=== PATIENT | female | born 1965 | race Caucasian/White ===

== ENCOUNTER → 2022-06-25 | Outpatient (CLI) | payer BC, SELFPAY ==
[2022-06-25 15:30] LABS: Platelet Count 218 K/mm3 (150-450)
== END | disposition home or self-care (01) ==
LOC: MTLAB 11:42
PROVIDERS: Referring Provider Podiatrist; Visit Provider Podiatrist
DX: D69.3 Immune thrombocytopenic purpura (principal)
CPT/HCPCS: 36415; 85049

== ENCOUNTER 2023-05-29 20:17 | Inpatient (IN) | payer OTHER, SELFPAY ==
[2023-05-29 20:17] VITALS: BP 137/64; PULSE 82; RESP 18; TEMP 36.8; O2SAT 99; BMI 31.3
--- NOTE | 2023-05-29 20:48 | CT_ITS ---
We are attempting to reach an attending provider to discuss findings. An addendum with communication details will be sent when the communication is complete. STUDY: CT ABDOMEN AND PELVIS WITH CONTRAST REASON FOR EXAM: Female, 57 years old. abdominal pain RADIATION DOSAGE (If Supplied By Facility): CTDIvol = ( 15.08 ) mGy, DLP = ( 1039.17 ) mGycm TECHNIQUE: Transaxial images were obtained from the dome of the diaphragm to the symphysis pubis without oral contrast. IV 100mL Isovue-370 was administered. Sagittal and coronal images were reconstructed. Individualized dose optimization techniques were used for this CT. COMPARISON: None. FINDINGS: The visualized lung bases are unremarkable. The visualized portions of the heart are within normal limits. Normal liver. Cholelithiasis. Normal spleen. Normal pancreas. Normal bilateral adrenal glands. Normal right kidney. Normal left kidney. Normal visualized stomach. Normal small intestine. Normal colon. Appendix is enlarged measuring up to 12 mm in diameter. Multiple appendicoliths are noted. There is stranding of the mesenteric fat. There is moderate free fluid in the pelvis. No abscess is identified. Normal abdominal aorta. Normal inferior vena cava. Normal retroperitoneum. Normal urinary bladder. Leiomyomatous uterus. Normal abdominal wall. Normal osseous structures. CT/Abdomen/Pelvis W IV Cont ONLY IMPRESSION: Acute appendicitis. Moderate free fluid. No definite free air but perforation is difficult to exclude. Cholelithiasis. Leiomyomatous uterus. Electronically Signed: Jerome Tavarez MD at 22:36 EDT ,
--- NOTE | 2023-05-29 20:48 | ED.VIS.GI ---
HPI HPI - GI History of Present Illness Chief Complaint: Abd Pain Detail of Chief Complaint: Abdominal pain Informant: patient and spouse/S.O. Abdominal Pain/Flank Pain Current Severity: 04/03 Narrative Narrative: Patient presents to the ER with complaint of abdominal pain that started yesterday. Patient states that she was at work yesterday and started having vomiting and developed abdominal pain. Initially pain was up higher in the abdomen but now lower. She continues to vomit. She had some loose stool but no diarrhea. She denies fever. Pain worse with movement. Pain is continuous. She rates it an 8 out of 10. No history of kidney stones. She denies dysuria or urgency or frequency. [facility] Medical History (Updated 05/29/23 @ 22:[address] Daryl Chaudhary DO) Abdominal pain Allergy/AdvReac Type Severity Reaction Status Date / Time erythromycin base AdvReac Upset Verified 05/29/23 20:19 Stomach Social History Smoking Status: Never smoker ROS ROS ED Review of Systems ROS Unobtainable: other Constitutional Constitutional ED: Reports lethargy; Denies chills, fever(s), sweats or weight loss Eyes Eyes: Denies blurry vision, change in vision or diplopia ENT ENT ED: Denies rhinorrhea or sore throat Cardiovascular Cardiovascular: Denies chest pain, orthopnea or racing heartbeat Respiratory/Chest Respiratory/Chest: Denies cough, dyspnea, dyspnea on exertion, orthopnea or sputum Gastrointestinal Gastrointestinal: Reports abdominal pain, nausea and vomiting; Denies diarrhea Genitourinary Genitourinary ED: Denies dysuria, hematuria or urinary frequency Musculoskeletal Musculoskeletal: Denies arthralgias, back pain, myalgias or neck pain Integumentary Denies abscess, Abrasions or rash Neurologic Neurologic: Denies headache(s) or weakness Psychiatric Psychiatric: Denies anxiety, depression or suicidal thoughts Endocrine Endocrinology: Denies polydipsia, polyphagia or polyuria Hematologic/Lymphatic Hematologic/Lymphatic: Denies easy bleeding, easy bruising or lymphadenopathy Allergic/Immunologic Allergic/Immunologic ED: Denies mouth swelling, tongue swelling or urticaria EXAM Physical Exam Const Vital Signs: 05/29/23 20:17 Temperature 98.3 F Temperature Source Temporal Pulse Rate 82 Respiratory Rate 18 Blood Pressure 137/64 H Blood Pressure Mean 88 Pulse Ox 99 Oxygen Delivery Method Room Air Positive well nourished and well developed General Appearance ED: well developed and NAD HEENT Reports TM's clear and moist mucous membranes normocephalic and atraumatic; Negative for trauma or tenderness Tympanic Membrane ED: Yes TM's clear Eyes PERRL and EOMs intact bilaterally General Eye ED: Negative for pale conjunctiva or scleral icterus Neck no lymphadenopathy, supple and no JVD General: Negative for tenderness Chest Wall inspection of chest normal and palpation of chest normal Chest: Negative for tenderness Resp normal respiratory effort and clear to auscultation bilaterally Effort and Inspection: Negative for respiratory distress or pain with movement Auscultation: Negative for rhonchi, wheezes or diminished lung sounds Cardio regular rate, regular rhythm, S1 normal heart sound, S2 normal heart sound and no murmurs Peripheral Pulses: pulses 2+ throughout GI normal to inspection, nondistended, normoactive bowel sounds, soft to palpation, non-distended and no masses GI Narrative: Tenderness palpation diffusely over the right lower quadrant as well as the suprapubic region and left lower quadrant. There is guarding. There is no rebound, rigidity, or peritoneal signs. No mass palpated Back/Spine no CVA tenderness and no thoracic nor lumbar tenderness Extremity normal to inspection General Extremety ED: Negative for edema General Extremity: Negative for edema Neuro oriented x3, CN's II-XII intact bilaterally, no sensory deficits noted and gait normal Sensorium / Orientation: awake, alert, oriented to person, oriented to place and oriented to time Motor Exam: strength 5/5 throughout and strength abnormal Psych mental status grossly normal Skin no rashes or lesions noted and no wounds MDM MDM MDM Narrative Medical decision making narrative: Patient presents with abdominal pain since yesterday and vomiting. In the differential would be appendicitis versus diverticulitis versus kidney stone versus bowel obstruction or bowel perforation. IV line established. Patient was medicated with Dilaudid and Zofran. CBC with differential obtained showed an elevated white count of 21.5. Hemoglobin 14 and platelet count of 223. Chemistries unremarkable. Lactate was normal 1.8. LFTs unremarkable. Lipase was normal. CT scan of the abdomen pelvis obtained interpreted by radiology as acute appendicitis with concern for possible microperforation. Patient was started on Cipro and Flagyl IV. Case will be discussed with general surgeon on-call Dr. Feliciano to evaluate for surgical intervention Lab Data Attestation: I reviewed the patient's lab results. Labs: Laboratory Results - last 24 hr 05/29/23 05/29/23 20:20 21:55 WBC 21.5 H RBC 4.56 Hgb 14.2 Hct 41.8 MCV 91.7 MCH 31.1 MCHC 34.0 RDW Std Deviation 43.3 RDW Coeff of Sandip 12.9 Plt Count 223 MPV 10.7 Immature Gran % (Auto) 0.500 Neut % (Auto) 82.5 H Lymph % (Auto) 10.0 L [place] % (Auto) 6.7 Eos % (Auto) 0.1 Baso % (Auto) 0.2 Absolute Neuts (auto) 17.7 H Absolute Lymphs (auto) 2.14 Nucleated RBC % 0 Sodium 135 L Potassium 3.9 Chloride 102 Carbon Dioxide 27.0 Anion Gap 6 BUN 9 Creatinine 0.85 Estim Creat Clear Calc 72.72 Est GFR (MDRD) Af Amer 89 Est GFR (MDRD) Non-Af 73 BUN/Creatinine Ratio 10.6 Glucose 131 H Lactic Acid 1.8 Calcium 9.2 Total Bilirubin 1.20 H AST 29 ALT 32 Alkaline Phosphatase 70 Total Protein 7.3 Albumin 3.7 Globulin 3.6 Albumin/Globulin Ratio 1.0 Lipase 15 Radiography Diagnostic Testing: Clinical Impression(s) from Imaging Studies Abdomen/Pelvis CT 05/29/23 20:48 IMPRESSION: Acute appendicitis. Moderate free fluid. No definite free air but perforation is difficult to exclude. Cholelithiasis. Leiomyomatous uterus. Electronically Signed: Jerome Tavarez MD at 22:36 EDT Reading Location ID and State: [address] [place] [address] Tel , Service support , ADDENDUM: 05/29/23 2248 IMPRESSION: Acute appendicitis. Moderate free fluid. No definite free air but perforation is difficult to exclude. Cholelithiasis. Leiomyomatous uterus. N.B. : The above Results were Read Back by Jerome Tavarez MD to Daryl Chaudhary DO, and understanding confirmed on 05/29/2023 22:41:18 (ET). Electronically Signed: Jerome Tavarez MD at 22:36 EDT Reading Location ID and State: [address] [place] [address] Tel , Service support , Discharge Plan Triage Chief Complaint: Abd Pain ED Provider: Daryl Chaudhary Dx/Rx/DC Orders Clinical Impression: Leukocytosis, Abdominal pain, Acute appendicitis Primary Care Provider: Care Physician,No Primary Referrals: Care Physician,No Primary [Primary Care Provider] -
[2023-05-29 20:51] LABS: Absolute Lymphocyte Count 2.14 X10^3/uL (0.83-4.51); Absolute Neutrophil Count 17.7 X10^3/uL (2.0-7.7); Basophil# 0.04 X10^3/uL; Basophil% 0.2 % (0-1); Eosinophil# 0.02 X10^3/uL; Eosinophils% 0.1 % (0-5); Hematocrit 41.8 % (37-47); Hemoglobin 14.2 g/dL (12.0-15.0); Lymphocyte # 2.14 X10^3/ul (0.83-4.51); Mean Corpuscular Hgb 31.1 pg (27.0-32.0); Mean Corpuscular Volume 91.7 fL (81-99); Mean Platelet Vol. 10.7 fl (6.2-12.0); Monocyte# 1.44 X10^3/uL; Monocyte% 6.7 % (0-10); NRBC Flagged by Analyzer 0 % (0-5); Neutrophil % 82.5 % (47-70); Platelet Count 223 K/mm3 (150-450); RBC Distribution Width CV 12.9 % (11.6-14.6); RBC Distribution Width SD 43.3 fl (35.1-43.9); Red Blood Count 4.56 M/mm3 (4.2-5.4); White Blood Count 21.5 K/mm3 (4.4-11.0)
[2023-05-29] MEDS: HYDROmorphone 1 MG/ML Syringe IV ×2 (20:53→21:49)
[2023-05-29] MEDS: Ondansetron 4 MG/2 ML Vial IV (20:53)
[2023-05-29] MEDS: 0.9% Normal Saline (1000mL) 1,000 ML 125 ML IV (20:57)
[2023-05-29 21:02] LABS: AST(SGOT) 29 U/L (15-37); Alanine Aminotransfer ALT/SGPT 32 U/L (13-56); Albumin, Serum 3.7 g/dL (3.2-5.0); Alkaline Phosphatase 70 U/L (45-117); Anion Gap 6 (5-15); BUN 9 mg/dL (7-18); BUN/Creat Ratio 10.6 RATIO (10-20); Calcium,Total 9.2 mg/dL (8.5-10.1); Chloride 102 mmol/L (98-107); Creatinine, Serum 0.85 mg/dL (0.55-1.02); EST Glomerular Filtration Rate 73 mL/min (>60); Est Glom Filt Rate - Afr Amer 89 mL/min (>60); Estimated Creatinine Clearance 72.72 ml/min; Globulin 3.6 g/dL (2.2-4.2); Glucose 131 mg/dL (74-106); Potassium 3.9 mmol/L (3.5-5.1); Protein, Total 7.3 g/dL (6.4-8.2); Sodium Level 135 mmol/L (136-145)
[2023-05-29] MEDS: Ciprofloxacin 400 MG/200 ML BAG 200 MG IV (21:50)
[2023-05-29 22:21] LABS: Lipase 15 U/L (13-75)
[2023-05-29 22:33] LABS: Lactic Acid 1.8 mmol/L (0.4-1.9)
[2023-05-29] MEDS: metroNIDAZOLE 500 MG/100 ML BAG 100 MG IV (22:50)
--- NOTE | 2023-05-29 22:57 | ED.RN ---
2024 Pt was placed where the doors to the ed opens and instructed the man with the pt and the pt that they neede to move for fear that they would be hit by a cart coming through the door.the pt's male visitor was not pleased.attempt to explain,but moved her and not pleased.
--- NOTE | 2023-05-29 23:25 | PCM.HP.STD ---
HPI - General General Chief Complaint: Acute onset abdominal pain with associated nausea, vomiting, and diarrhea HPI Narrative DENISE BELLE, is a 57 F who presents to [facility] with her for approximately 36 hours of acute onset abdominal pain with associated nausea, vomiting, and diarrhea. She states she worked yesterday and had to leave early on account of the pain, nausea, vomiting. On arriving home, she states she laid around in her bed until earlier this evening when her prompted her to present for evaluation with worsening of her abdominal discomfort. She notes that there was some associated fevering as well. Patient's ED work-up is notable for CBC with leukocytosis of 21,000. CT imaging of the abdomen pelvis showed evidence of acute appendicitis with a number of appendicoliths and some free fluid. Radiology noted that a perforation could not be absolutely excluded. Patient has history of mild thrombocytopenia and states that her last check her platelet count was just over 100,000, however, here is over 200,000. She also reports use of estrogen for management of her menopausal symptoms. From a surgical standpoint, patient has undergone dilatation and curettage as well as tonsillectomy, remotely. [facility], [facility]1983 Medical History (Updated 05/29/23 @ 22:[address] Daryl Chaudhary, ) Abdominal pain Allergy/AdvReac Type Severity Reaction Status Date / Time erythromycin base AdvReac Upset Verified 05/29/23 20:19 Stomach Social History Smoking Status: Never smoker Vital Signs Vital Signs Vital Signs: 05/29/23 20:17 Temperature 98.3 F Temperature Source Temporal Pulse Rate 82 Respiratory Rate 18 Blood Pressure 137/64 H Blood Pressure Mean 88 Pulse Ox 99 Oxygen Delivery Method Room Air Weight Weight: 200 lb Body Mass Index (BMI) 31.3 Physical Exam Const alert and oriented x3 Constitutional Narrative: Patient appears in mild distress from abdominal discomfort General Appearance: cooperative Resp normal respiratory effort GI GI Narrative: No scars, nondistended, soft, exquisitely tender to palpation of the right lower quadrant. Voluntary guarding present. Negative Rovsing's. Positive obturator. Negative psoas sign. Results Lab / Micro Data 05/29/23 20:20 05/29/23 20:20 Labs: Laboratory Results - last 24 hr 05/29/23 20:20: WBC 21.5 H, RBC 4.56, Hgb 14.2, Hct 41.8, MCV 91.7, MCH 31.1, MCHC 34.0, RDW Std Deviation 43.3, RDW Coeff of Sandip 12.9, Plt Count 223, MPV 10.7, Immature Gran % (Auto) 0.500, Neut % (Auto) 82.5 H, Lymph % (Auto) 10.0 L, Davis % (Auto) 6.7, Eos % (Auto) 0.1, Baso % (Auto) 0.2, Absolute Neuts (auto) 17.7 H, Absolute Lymphs (auto) 2.14, Nucleated RBC % 0, Sodium 135 L, Potassium 3.9, Chloride 102, Carbon Dioxide 27.0, Anion Gap 6, BUN 9, Creatinine 0.85, Estim Creat Clear Calc 72.72, Est GFR (MDRD) Af Amer 89, Est GFR (MDRD) Non-Af 73, BUN/Creatinine Ratio 10.6, Glucose 131 H, Calcium 9.2, Total Bilirubin 1.20 H, AST 29, ALT 32, Alkaline Phosphatase 70, Total Protein 7.3, Albumin 3.7, Globulin 3.6, Albumin/Globulin Ratio 1.0, Lipase 15 05/29/23 21:55: Lactic Acid 1.8 Radiology Impression Abdomen/Pelvis CT 05/29/23 20:48 IMPRESSION: Acute appendicitis. Moderate free fluid. No definite free air but perforation is difficult to exclude. Cholelithiasis. Leiomyomatous uterus. Electronically Signed: Jerome Tavarez MD at 22:36 EDT Reading Location ID and State: [address] [place] [address] Tel , Service support , ADDENDUM: 05/29/23 1801 IMPRESSION: Acute appendicitis. Moderate free fluid. No definite free air but perforation is difficult to exclude. Cholelithiasis. Leiomyomatous uterus. N.B. : The above Results were Read Back by Jerome Tavarez MD to Daryl Chaudhary DO, and understanding confirmed on 05/29/2023 22:41:18 (ET). Electronically Signed: Jerome Tavarez MD at 22:36 EDT Reading Location ID and State: [facility] / [place] Tel , Service support , Assessment & Plan Assessment/Plan (1) Acute appendicitis: PLAN: This is a 57-year-old female who exhibits signs and symptoms of acute appendicitis. I agree with radiologic assessment that complicated appendicitis cannot be completely excluded given the degree of free fluid and periappendiceal inflammation seen on CT imaging. Patient has been administered ciprofloxacin and Flagyl for concern for diverticulitis by emergency medicine. We will plan to transition to IV Zosyn. I have discussed with patient the surgical management of her condition given the presence of appendicoliths, especially. We will plan to proceed with laparoscopic appendectomy first thing tomorrow morning. Both she and her expressed understanding of this discussion. They are also briefed that, depending on the intraoperative findings, she could require an extended inpatient stay for monitoring for possible abscess formation as well as development of an ileus if she is found to have evidence of a perforation. They expressed understanding of this caution as well. Patient reports a history of thrombocytopenia, but this does not appear to be a concern based on her CBC from earlier in her work-up that shows a platelet count of greater than 220,000. Remainder of plan as follows: ? N.p.o. for surgery ? IV fluid support ? IV Zosyn 3.375 every 8 hours ? Consent for laparoscopic appendectomy ? Surgery to be undertaken 0600 tomorrow morning ? PRNs for both pain and nausea ordered Charges/Coding Visit Charges Inpatient E&M: 93727 Init Hosp L2
[2023-05-30] VITALS (12 sets, daily range): BP systolic 108–137; BP diastolic 61–83; PULSE 77–97; RESP 16–20; TEMP 36.4–37.6; O2SAT 92–98; BMI 32.6
[2023-05-30] MEDS: HYDROmorphone 0.5 MG/0.5 ML SYRINGE IV ×5 (01:17→20:55)
[2023-05-30] MEDS: 0.9% Normal Saline (1000mL) 1,000 ML 125 ML IV ×2 (01:18→16:00)
[2023-05-30] MEDS: Piperacil/Tazobactam 3.375 GM in 0.9% Normal Saline (50mL MB+) 50 ML IV ×3 (02:12→21:00)
[2023-05-30] MEDS: 0.9% Saline Lock 10 ML Syringe IV (05:27)
[2023-05-30 05:51] LABS: Color, Urine Yellow (Yellow); Glucose, Dipstick 100 mg/dl (Normal); Leukocyte Esterase-Dipstick 25 /ul (Negative); Mucous, Urine 0 SEEN /hpf (<or=2+); Nitrite-Dipstick Positive (Negative); Occult Blood-Urine 150 /ul (Negative); Protein-Dipstick 30 mg/dl (Negative); Red Blood Cells-Urine 0 SEEN /hpf (0-5); Urine Clarity Clear (Clear); Urine Urobilinogen 4 mg/dl (Normal)
[2023-05-30 05:53] LABS: Basophil# 0.04 X10^3/uL; Basophil% 0.2 % (0-1); Hemoglobin 14.1 g/dL (12.0-15.0); Lymphocyte % 4.7 % (19-41); Mean Corp Hgb Conc 34.4 g/dL (32-36); Mean Corpuscular Hgb 31.9 pg (27.0-32.0); Mean Corpuscular Volume 92.8 fL (81-99); Mean Platelet Vol. 10.3 fl (6.2-12.0); Monocyte# 1.07 X10^3/uL; NRBC Flagged by Analyzer 0 % (0-5); Neutrophil # 18.99 X10^3/uL (2.7-7.7); Neutrophil % 89.5 % (47-70); Platelet Count 199 K/mm3 (150-450); RBC Distribution Width CV 13.2 % (11.6-14.6); RBC Distribution Width SD 45.1 fl (35.1-43.9); Red Blood Count 4.42 M/mm3 (4.2-5.4); White Blood Count 21.2 K/mm3 (4.4-11.0)
[2023-05-30 05:58] LABS: Ketone-Dipstick 150 mg/dl (Negative); Urine Bilirubin Dipstick 1 mg/dL (Negative)
[2023-05-30 06:03] LABS: Bacteria 1+ /hpf (None Seen); Squamous Epithelial Cells - UA 0-5 SEEN /hpf (5-10); White Blood Cells 0-5 SEEN /hpf (0-5)
[2023-05-30 06:23] LABS: Anion Gap 6 (5-15); BUN 11 mg/dL (7-18); BUN/Creat Ratio 12.1 RATIO (10-20); Calcium,Total 8.6 mg/dL (8.5-10.1); Chloride 105 mmol/L (98-107); Creatinine, Serum 0.91 mg/dL (0.55-1.02); EST Glomerular Filtration Rate 68 mL/min (>60); Est Glom Filt Rate - Afr Amer 83 mL/min (>60); Estimated Creatinine Clearance 67.93 ml/min; Glucose 166 mg/dL (74-106); Potassium 3.6 mmol/L (3.5-5.1); Sodium Level 136 mmol/L (136-145)
--- NOTE | 2023-05-30 07:54 | PCM.OPRPT ---
Report of Operation Date of Procedure: 05/30/23 Pre-Operative Diagnosis: Acute appendicitis Post-Operative Diagnosis: Acute complicated appendicitis Surgery/Procedure Performed:: Laparoscopic appendectomy with drain placement Description of Surgical Findings:: ? Moderately inflamed bowel adherent to the anterior abdominal wall with inflammatory exudate coating the majority of the small bowel ? Purulence within the pelvis and small flecks of fecal matter ? Severely inflamed appendix with a relatively preserved appendiceal base Surgeon: Richmond Feliciano chimney builder brick: Alphonse Acosta Type of Anesthesia: General/Supplemental Anesthesiologist: Abram Resendiz Specimen's removed: appendix Drains: 15F round dusty Estimated Blood Loss (mL): 10 Description of Procedure: After appropriate identification in the preoperative holding area, the patient was brought to the operating room and placed supine on the operating room table. Antibiotics had been preoperatively administered. Patient was then induced with general endotracheal anesthetic. The abdomen was prepped and draped in usual sterile fashion. Formal timeout was conducted to confirm both the patient and the procedure. A supraumbilical incision was made and carried down to the level of the fascia which was sharply opened. After opening the peritoneum in like fashion a finger sweep was made to confirm position, and a balloon trocar was placed and pneumoperitoneum was established to 15 mmHg. Patient was positioned in Trendelenburg with the left side down. 2 additional 5 mm trocars were placed in the left lower quadrant and suprapubic positions under laparoscopic visualization. The peritoneum was inspected and there are no signs of inadvertent injury from this Collier entry, however, there was plastering of the small bowel to the anterior abdominal wall in the suprapubic position that required blunt mobilization before ports could even be placed and abundant purulence within the pelvis. Patient was also noted to have a large fibroid uterus within the pelvis. The appendix was visualized with severe inflammation. Using blunt laparoscopic dissection the appendix was from the adjacent ileum and placed on traction. Then using further blunt dissection a window was made in the mesoappendix adjacent to the appendiceal base. The mesoappendix was divided with application of a laparoscopic harmonic. Then the base of the appendix was sealed and amputated with the use of an Endo RADHA stapler. The remainder of the mesoappendix was taken with additional application of the harmonic scalpel and the appendix was placed in an Endo Catch bag. The staple line was inspected for hemostasis. After hemostasis was confirmed the pelvis was copiously irrigated with 2 L of warmed lactated Ringer's and this effluent was suctioned free of the peritoneum. A 15 Palauan round Dusty drain was fed in through the suprapubic port and brought out through the left lower quadrant. The drain tip was positioned adjacent our surgical site and continued down into the pelvis and a retrouterine my. It was secured at the skin with a 2-0 nylon suture. Then the appendix was removed from the umbilical port site and pneumoperitoneum was evacuated. The supraumbilical port site fascia was closed with #1 Vicryl in a [id number] fashion. The port sites were infiltrated with 30 mL local anesthetic. The skin of each port site was closed with 4-0 Monocryl in a subcuticular fashion. Steri-Strips and OpSite dressings were applied. Patient tolerated procedure well without any apparent complications. They were awoken from general anesthetic without issue and transferred to post anesthesia care unit for ongoing recovery. Grafts/Implants Used: None Complications None Admit VTE Documentation VTE Mechan Device Prophylaxis: SCD's Procedures Digestive 40xxx-49xxx: 72702 Laparoscopy appendectomy
--- NOTE | 2023-05-30 08:00 | APP_PTH ---
PATIENT: DENISE BELLE LOC: MS3 U#:[id number] AGE/SX: 57/F ROOM: [facility] RE05/30/[address]: Dr. Richmond Feliciano MD : 1965 BED: 1 DIS: 06/03/2023 SPEC #: [id number] RECD: 05/30/23 08:31 STATUS: OUMAR RERoxanne #: [id number] ELIZABETH: 05/30/23 08:[address]: Richmond Feliciano DEPT: SURGICAL PATHOLOGY RECD BY: Deedee Allred ENTERED: 05/30/23 10:12 SP TYPE: APPENDIX OTHR DR: No Primary Care Phys Tissues: Appendix, NOS Procedures: Surgery Specimen Level III HEADER OPERATION: Laparoscopic appendectomy PRE-OP DIAGNOSIS: Acute appendicitis TISSUE SUBMITTED: Appendix MICROSCOPIC DIAGNOSIS Appendix, appendectomy: Acute necrotizing appendicitis. Acute serositis. AM:wilda 06/02/2023 MICROSCOPIC DESCRIPTION Slides are reviewed. GROSS DESCRIPTION Received in fixative is one container labeled with the patient's name and designated appendix. The specimen consists of an appendix measuring 9.0 cm in length and up to 1.0 cm in diameter. The attached periappendiceal adipose tissue measures up to 2.0 cm in width. The serosal surface is covered with roberts, purulent exudate. A focal area suspicious for rupture is noted. The lumen contains hemorrhagic material. No fecalith is identified. Solar Electric Installer sections are submitted in one cassette. / SJ:wilda 05/30/2023 TC:2 CPT: 60115
[2023-05-30] MEDS: Bupivacaine Mpf 0.5% 30 ML VIAL (12:32)
--- NOTE | 2023-05-30 15:00 | CASEMGMT ---
KATIUSKA GARLAND Assessment: Face to Face with pt for initial transition planning/care coordination assessment. Patient laying in bed resting; wakes easily to sound of my voice; is also at the bedside. KATIUSKA GARLAND introduced self and role at [facility], pt voices understanding and consents to assessment. Pt is A&O x4 and answers all questions appropriately at this time. Care providers, pharmacy, and demographics verified/updated. During assessment (at two different times) patient lets out a cry, and puts her hands near where her surgery took place. I informed her that I would let her nurse know about this. KATIUSKA GARLAND informed patient's nurse, Gee, of this information and that patient seems to be displaying that she has pain. Admitting Dx: Acute appendicitis PCP: None. KATIUSKA GARLAND provided patient with list of PCPs for her to review. Specialists: Ethan ([facility] - OBGYN - pt. stats no longer takes her insurance) [facility] Insurance: MMO Exchange Out Prescription Benefit: Patient states she is unsure as she has not had any prescriptions recently LNOK: Karina Edwards () Living Will/HCPOA: No and No. Patient's states she has both of these documents written up but just needs to get them notarized. Living Arrangements: Pt lives at home with her in a 1 story, FFSU with 5 steps w/railing to enter. Pt. states prior to this admission she ambulated these stairs without difficulty. Independent in all ADLs and IADLs (states her does most of cooking and cleaning since he is retired, but she can do these if needed). Transportation: Pt drives self. can also drive if needed. DME: Denies any current DME. Denies need for any future DME. HHC/SNF: Denies any previous HHC or SNF Pt does not voice any concerns with going home at time of dc. Pt states no further concerns/needs. CM to follow. Advised pt to ask CM if any further question/concerns/needs arise, voices understanding. Pt Goal: Home with support of who is a retired manager sourcing Plan: Patient to discharge home with family support and follow-up plans in place. Shameka LI, RN, CM
[2023-05-31] VITALS (7 sets, daily range): BP systolic 130–152; BP diastolic 73–90; PULSE 76–86; RESP 16–18; TEMP 36.6–37.3; O2SAT 94–96
[2023-05-31] MEDS: 0.9% Normal Saline (1000mL) 1,000 ML 125 ML IV ×2 (00:19→08:21)
[2023-05-31] MEDS: HYDROmorphone 0.5 MG/0.5 ML SYRINGE IV ×5 (01:48→23:56)
[2023-05-31] MEDS: Piperacil/Tazobactam 3.375 GM in 0.9% Normal Saline (50mL MB+) 50 ML IV ×3 (05:39→23:41)
[2023-05-31 07:56] LABS: Absolute Lymphocyte Count 1.43 X10^3/uL (0.83-4.51); Absolute Neutrophil Count 16.4 X10^3/uL (2.0-7.7); Basophil# 0.05 X10^3/uL; Basophil% 0.3 % (0-1); Eosinophil# 0.01 X10^3/uL; Eosinophils% 0.1 % (0-5); Hematocrit 37.9 % (37-47); Hemoglobin 12.3 g/dL (12.0-15.0); Lymphocyte # 1.43 X10^3/ul (0.83-4.51); Lymphocyte % 7.5 % (19-41); Mean Corp Hgb Conc 32.5 g/dL (32-36); Mean Corpuscular Volume 95.5 fL (81-99); Monocyte# 1.01 X10^3/uL; Monocyte% 5.3 % (0-10); NRBC Flagged by Analyzer 0 % (0-5); Neutrophil # 16.37 X10^3/uL (2.7-7.7); Neutrophil % 85.8 % (47-70); Platelet Count 213 K/mm3 (150-450); RBC Distribution Width CV 13.3 % (11.6-14.6); RBC Distribution Width SD 47.5 fl (35.1-43.9); Red Blood Count 3.97 M/mm3 (4.2-5.4); White Blood Count 19.1 K/mm3 (4.4-11.0)
[2023-05-31 08:26] LABS: Anion Gap 4 (5-15); BUN 10 mg/dL (7-18); BUN/Creat Ratio 14.1 RATIO (10-20); Calcium,Total 8.3 mg/dL (8.5-10.1); Chloride 107 mmol/L (98-107); Creatinine, Serum 0.71 mg/dL (0.55-1.02); EST Glomerular Filtration Rate 91 mL/min (>60); Est Glom Filt Rate - Afr Amer 110 mL/min (>60); Estimated Creatinine Clearance 87.06 ml/min; Glucose 115 mg/dL (74-106); Magnesium 2.4 mg/dL (1.6-2.6); Phosphorus 1.4 mg/dL (2.5-4.9); Potassium 3.7 mmol/L (3.5-5.1); Sodium Level 137 mmol/L (136-145)
--- NOTE | 2023-05-31 08:47 | PCM.PN.SRG ---
Subjective Subjective The patient does not report any flatus. Her pain is controlled. Objective Data Objective Data Vital Signs: Vital Signs Temp Pulse Resp BP Pulse Ox O2 Del Method O2 Flow Rate 99.1 F 82 18 138/79 H 94 Room Air 2 05/31/23 08:29 05/31/23 08:29 05/31/23 08:29 05/31/23 08:29 05/31/23 08:29 05/31/23 08:29 05/30/23 11:47 Oxygen Flow Rate (L/min) 2 Oxygen Delivery Method Room Air Weight: 208 lb 5.389 oz Body Mass Index (BMI) 32.6 Intake & Output: Intake and Output for Last 24 Hours 05/29/23 05/30/23 05/31/23 23:59 23:59 23:59 Intake Total 300 / 300 2600.00 / 3600.00 2049 / 2049 Output Total 955 / 955 280 / 280 Balance 300 / 300 1645.00 / 2645.00 1770 / 1770 Lab / Micro Data 05/31/23 06:30 05/31/23 06:30 Labs: Laboratory Results - last 24 hr 05/31/23 06:30: WBC 19.1 H, RBC 3.97 L, Hgb 12.3, Hct 37.9, MCV 95.5, MCH 31.0, MCHC 32.5 D, RDW Std Deviation 47.5 H, RDW Coeff of Sandip 13.3, Plt Count 213, MPV 11.0, Immature Gran % (Auto) 1.000 H, Neut % (Auto) 85.8 H, Lymph % (Auto) 7.5 L, [place] % (Auto) 5.3, Eos % (Auto) 0.1, Baso % (Auto) 0.3, Absolute Neuts (auto) 16.4 H, Absolute Lymphs (auto) 1.43, Nucleated RBC % 0, Sodium 137, Potassium 3.7, Chloride 107, Carbon Dioxide 26.0, Anion Gap 4 L, BUN 10, Creatinine 0.71, Estim Creat Clear Calc 87.06, Est GFR (MDRD) Af Amer 110, Est GFR (MDRD) Non-Af 91, BUN/Creatinine Ratio 14.1, Glucose 115 H, Calcium 8.3 L, Phosphorus 1.4 L, Magnesium 2.4 Micro: Microbiology 05/30/23 07:22 Aspirate - Other Gram Stain - Final Physical Exam Const oriented x3 and no apparent distress Resp normal respiratory effort GI soft to palpation Inspection: abdominal distention Auscultation: hypoactive bowel sounds Palpation: tender Assessment & Plan Assessment/Plan (1) Acute appendicitis: QUALIFIERS: Acute appendicitis type: with localized peritonitis Appendicitis gangrene presence: without gangrene Appendicitis perforation presence: with perforation Appendicitis abscess presence: unspecified whether abscess present Qualified Code(s): K35.32 - Acute appendicitis with perforation, localized peritonitis, and gangrene, without abscess (2) Hypophosphatemia: PLAN: Plan Patient is not passing any flatus yet. I encouraged ambulation. I will start Lovenox tomorrow. White count is decreasing and I will continue IV antibiotics. SARA is serous. Await bowel function. Alphonse Acosta MD Pager: [facility] [address] [place] [address], [address] [place] [address] Office:
[2023-05-31] MEDS: Ondansetron 4 MG/2 ML Vial IV (10:24)
[2023-05-31] MEDS: Potassium Phosphate 30 MM in 0.9% Normal Saline (250mL Bag) 250 ML 42 MM IV (12:29)
[2023-05-31] MEDS: 0.9% Normal Saline (1000mL) 1,000 ML 80 ML IV (23:40)
[2023-06-01 03:34] VITALS: BP 151/86; PULSE 73; RESP 18; TEMP 36.8; O2SAT 94
[2023-06-01] MEDS: Piperacil/Tazobactam 3.375 GM in 0.9% Normal Saline (50mL MB+) 50 ML IV ×3 (05:51→20:12)
[2023-06-01 06:06] LABS: Basophil# 0.04 X10^3/uL; Basophil% 0.3 % (0-1); Eosinophil# 0.07 X10^3/uL; Eosinophils% 0.5 % (0-5); Hematocrit 36.5 % (37-47); Hemoglobin 12.1 g/dL (12.0-15.0); Lymphocyte % 8.4 % (19-41); Mean Corp Hgb Conc 33.2 g/dL (32-36); Mean Corpuscular Hgb 31.1 pg (27.0-32.0); Mean Corpuscular Volume 93.8 fL (81-99); Mean Platelet Vol. 10.5 fl (6.2-12.0); Monocyte# 0.77 X10^3/uL; Monocyte% 5.9 % (0-10); NRBC Flagged by Analyzer 0 % (0-5); Neutrophil # 11.02 X10^3/uL (2.7-7.7); Neutrophil % 84.4 % (47-70); Platelet Count 235 K/mm3 (150-450); RBC Distribution Width CV 13.4 % (11.6-14.6); RBC Distribution Width SD 45.8 fl (35.1-43.9); Red Blood Count 3.89 M/mm3 (4.2-5.4); White Blood Count 13.1 K/mm3 (4.4-11.0)
[2023-06-01 07:29] LABS: Anion Gap 5 (5-15); BUN 10 mg/dL (7-18); BUN/Creat Ratio 18.1 RATIO (10-20); Chloride 108 mmol/L (98-107); Creatinine, Serum 0.55 mg/dL (0.55-1.02); EST Glomerular Filtration Rate 122 mL/min (>60); Est Glom Filt Rate - Afr Amer 147 mL/min (>60); Estimated Creatinine Clearance 112.39 ml/min; Glucose 120 mg/dL (74-106); Magnesium 2.5 mg/dL (1.6-2.6); Potassium 3.5 mmol/L (3.5-5.1); Sodium Level 139 mmol/L (136-145)
[2023-06-01 08:16] LABS: Phosphorus 1.6 mg/dL (2.5-4.9)
--- NOTE | 2023-06-01 08:22 | PCM.PN.SRG ---
Subjective Subjective Patient is not having any bowel function yet Objective Data Objective Data Vital Signs: Vital Signs Temp Pulse Resp BP Pulse Ox O2 Del Method O2 Flow Rate 98.3 F 73 18 151/86 H 94 Room Air 2 06/01/23 03:34 06/01/23 03:34 06/01/23 03:34 06/01/23 03:34 06/01/23 03:34 06/01/23 03:34 05/30/23 11:47 Oxygen Flow Rate (L/min) 2 Oxygen Delivery Method Room Air Weight: 208 lb 5.389 oz Body Mass Index (BMI) 32.6 Intake & Output: Intake and Output for Last 24 Hours 05/30/23 05/31/23 06/01/23 23:59 23:59 23:59 Intake Total 2600.00 / 3600.00 4250 / 4250 310 / 310 Output Total 955 / 955 395 / 395 640 / 640 Balance 1645.00 / 2645.00 3855 / 3855 -330 / -330 Lab / Micro Data 06/01/23 04:50 06/01/23 04:50 Labs: Laboratory Results - last 24 hr 05/31/23 06:30: Sodium 137, Potassium 3.7, Chloride 107, Carbon Dioxide 26.0, Anion Gap 4 L, BUN 10, Creatinine 0.71, Estim Creat Clear Calc 87.06, Est GFR (MDRD) Af Amer 110, Est GFR (MDRD) Non-Af 91, BUN/Creatinine Ratio 14.1, Glucose 115 H, Calcium 8.3 L, Phosphorus 1.4 L, Magnesium 2.4 06/01/23 04:50: WBC 13.1 H, RBC 3.89 L, Hgb 12.1, Hct 36.5 L, MCV 93.8, MCH 31.1, MCHC 33.2, RDW Std Deviation 45.8 H, RDW Coeff of Sandip 13.4, Plt Count 235, MPV 10.5, Immature Gran % (Auto) 0.500, Neut % (Auto) 84.4 H, Lymph % (Auto) 8.4 L, [place] % (Auto) 5.9, Eos % (Auto) 0.5, Baso % (Auto) 0.3, Absolute Neuts (auto) 11.0 H, Absolute Lymphs (auto) 1.10, Nucleated RBC % 0, Sodium 139, Potassium 3.5, Chloride 108 H, Carbon Dioxide 26.0, Anion Gap 5, BUN 10, Creatinine 0.55, Estim Creat Clear Calc 112.39, Est GFR (MDRD) Af Amer 147, Est GFR (MDRD) Non-Af 122, BUN/Creatinine Ratio 18.1, Glucose 120 H, Calcium 8.0 L, Phosphorus 1.6 L, Magnesium 2.5 Micro: Microbiology 05/30/23 07:22 Aspirate - Other Gram Stain - Final 05/30/23 07:22 Aspirate - Other Wound Culture - Preliminary GNR lactose desktop support specialist GNR lactose desktop support specialist#2 Alpha hemolytic organism Physical Exam Const oriented x3 Resp normal respiratory effort GI soft to palpation Inspection: abdominal distention Assessment & Plan Assessment/Plan (1) Acute appendicitis: QUALIFIERS: Acute appendicitis type: with localized peritonitis Appendicitis gangrene presence: without gangrene Appendicitis perforation presence: with perforation Appendicitis abscess presence: unspecified whether abscess present Qualified Code(s): K35.32 - Acute appendicitis with perforation, localized peritonitis, and gangrene, without abscess PLAN: Patient is using doing well. She is not having any bowel function yet. Continue n.p.o. and IV fluids with sips and chips continue to encourage ambulation. Continue SARA drain which is serous. Alphonse Acosta MD Pager: [facility] [address] [place] [address], [address] [place] [phone] Office:
[2023-06-01 09:30] VITALS: BP 144/86; PULSE 80; RESP 18; TEMP 37.3; O2SAT 96
--- NOTE | 2023-06-01 09:42 | NURSING ---
K PHOS IV NOT HERE FOR PT ADMINISTRATION
[2023-06-01] MEDS: Potassium Phosphate 30 MM in 0.9% Normal Saline (250mL Bag) 250 ML 42 MM IV (10:38)
[2023-06-01] MEDS: 0.9% Normal Saline (1000mL) 1,000 ML 80 ML IV ×2 (10:58→20:16)
[2023-06-01] MEDS: Acetaminophen 325 MG Tablet 650 MG PO ×2 (13:02→18:49)
[2023-06-01] MEDS: Ketorolac 15 MG/ML Vial IV (13:03)
[2023-06-01] MEDS: Enoxaparin 40 MG/0.4 ML Syringe SC (13:04)
[2023-06-01 14:26] VITALS: BP 131/71; PULSE 85; RESP 18; TEMP 37.1; O2SAT 99
[2023-06-01 19:59] VITALS: BP 149/76; PULSE 78; RESP 16; TEMP 36.7; O2SAT 95
[2023-06-01] MEDS: HYDROmorphone 0.5 MG/0.5 ML SYRINGE IV (20:06)
[2023-06-01] MEDS: 0.9% Saline Lock 10 ML Syringe IV (20:08)
[2023-06-02 03:01] VITALS: BP 163/84; PULSE 72; RESP 16; TEMP 36.8; O2SAT 95
[2023-06-02] MEDS: Acetaminophen 325 MG Tablet 650 MG PO ×2 (03:06→21:25)
[2023-06-02] MEDS: Ketorolac 15 MG/ML Vial IV (03:06)
[2023-06-02] MEDS: Piperacil/Tazobactam 3.375 GM in 0.9% Normal Saline (50mL MB+) 50 ML IV ×3 (05:23→21:11)
[2023-06-02 06:21] LABS: Absolute Lymphocyte Count 1.18 X10^3/uL (0.83-4.51); Absolute Neutrophil Count 6.9 X10^3/uL (2.0-7.7); Basophil# 0.05 X10^3/uL; Basophil% 0.5 % (0-1); Eosinophils% 3.2 % (0-5); Hematocrit 34.6 % (37-47); Hemoglobin 11.4 g/dL (12.0-15.0); Lymphocyte # 1.18 X10^3/ul (0.83-4.51); Lymphocyte % 12.7 % (19-41); Mean Corp Hgb Conc 32.9 g/dL (32-36); Mean Corpuscular Hgb 30.9 pg (27.0-32.0); Mean Corpuscular Volume 93.8 fL (81-99); Mean Platelet Vol. 10.1 fl (6.2-12.0); Monocyte% 8.6 % (0-10); NRBC Flagged by Analyzer 0 % (0-5); Neutrophil # 6.91 X10^3/uL (2.7-7.7); Neutrophil % 74.4 % (47-70); Platelet Count 242 K/mm3 (150-450); RBC Distribution Width CV 13.4 % (11.6-14.6); RBC Distribution Width SD 46.1 fl (35.1-43.9); Red Blood Count 3.69 M/mm3 (4.2-5.4); White Blood Count 9.3 K/mm3 (4.4-11.0)
[2023-06-02 06:44] LABS: Anion Gap 7 (5-15); BUN 10 mg/dL (7-18); BUN/Creat Ratio 18.2 RATIO (10-20); Calcium,Total 7.8 mg/dL (8.5-10.1); Chloride 109 mmol/L (98-107); Creatinine, Serum 0.55 mg/dL (0.55-1.02); EST Glomerular Filtration Rate 122 mL/min (>60); Est Glom Filt Rate - Afr Amer 148 mL/min (>60); Estimated Creatinine Clearance 112.39 ml/min; Glucose 105 mg/dL (74-106); Potassium 3.4 mmol/L (3.5-5.1); Sodium Level 140 mmol/L (136-145)
[2023-06-02] MEDS: 0.9% Normal Saline (1000mL) 1,000 ML 80 ML IV ×2 (06:49→19:07)
[2023-06-02 08:45] VITALS: BP 142/77; PULSE 63; RESP 18; TEMP 37.3; O2SAT 97
[2023-06-02] MEDS: Enoxaparin 40 MG/0.4 ML Syringe SC (08:53)
--- NOTE | 2023-06-02 09:18 | PN.SURG_ITS ---
Subjective Subjective Patient evaluated sitting comfortably on the side of the bed. She denies nausea, vomiting, fever. She notes feeling much improved. She denies abdominal pain currently. She is feeling hungry. Patient has been passing flatus starting this morning. She has not had a bowel movement at this time. Objective Data Objective Data Vital Signs: Vital Signs Temp Pulse Resp BP Pulse Ox O2 Del Method O2 Flow Rate 99.1 F 63 18 142/77 H 97 Room Air 2 06/02/23 08:45 06/02/23 08:45 06/02/23 08:45 06/02/23 08:45 06/02/23 08:45 06/02/23 08:45 05/30/23 11:47 Oxygen Flow Rate (L/min) 2 Oxygen Delivery Method Room Air Weight: 208 lb 5.389 oz Body Mass Index (BMI) 32.6 Intake & Output: Intake and Output for Last 24 Hours 05/31/23 06/01/23 06/02/23 23:59 23:59 23:59 Intake Total 4250 / 4250 3034.04 / 3134.04 1092.96 / 1092.96 Output Total 395 / 395 1200 / 1200 990 / 990 Balance 3855 / 3855 1834.04 / 1934.04 102.96 / 102.96 Lab / Micro Data 06/02/23 05:30 06/02/23 05:30 Labs: Laboratory Results - last 24 hr 06/02/23 05:30: WBC 9.3, RBC 3.69 L, Hgb 11.4 L, Hct 34.6 L, MCV 93.8, MCH 30.9, MCHC 32.9, RDW Std Deviation 46.1 H, RDW Coeff of Sandip 13.4, Plt Count 242, MPV 10.1, Immature Gran % (Auto) 0.600, Neut % (Auto) 74.4 H, Lymph % (Auto) 12.7 L, [place] % (Auto) 8.6, Eos % (Auto) 3.2, Baso % (Auto) 0.5, Absolute Neuts (auto) 6.9, Absolute Lymphs (auto) 1.18, Nucleated RBC % 0, Sodium 140, Potassium 3.4 L , Chloride 109 H, Carbon Dioxide 24.0, Anion Gap 7, BUN 10, Creatinine 0.55, Estim Creat Clear Calc 112.39, Est GFR (MDRD) Af Amer 148, Est GFR (MDRD) Non-Af 122, BUN/Creatinine Ratio 18.2, Glucose 105, Calcium 7.8 L Micro: Microbiology 05/30/23 07:22 Aspirate - Other Gram Stain - Final 05/30/23 07:22 Aspirate - Other Wound Culture - Preliminary Escherichia coli Klebsiella pneumoniae sp pneum Alpha hemolytic organism 05/30/23 07:22 Aspirate - Other Anaerobic Culture - Preliminary Checking for anaerobes, further studies to follow. Physical Exam GI GI Narrative: Abdomen- soft, nontender. SARA drain intact. No erythema at the incision sites. SARA drain intact and draining serosanguineous drainage. Assessment & Plan Assessment/Plan (1) Acute appendicitis: QUALIFIERS: Acute appendicitis type: with localized peritonitis Appendicitis gangrene presence: without gangrene Appendicitis perforation presence: with perforation Appendicitis abscess presence: unspecified whether abscess present Qualified Code(s): K35.32 - Acute appendicitis with perforation, localized peritonitis, and gangrene, without abscess PLAN: I am following this patient in conjunction with Dr. Acosta in Dr. Feliciano's absence. WBC has returned to normal Awaiting phos lab work Plan to replace potassium once phos has returned Increase to clear liquid diet has had 290 cc out since 0300 AM this morning. Continue to leave and monitor Obtain lab work tomorrow morning Possible discharge tomorrow We will continue to monitor this patient Charges/Coding Visit Charges Inpatient E&M: 85859 Subs Hosp L1 (no charge; post-op)
[2023-06-02 10:01] LABS: Phosphorus 2.4 mg/dL (2.5-4.9)
[2023-06-02] MEDS: Potassium Phosphate 15 MM in 0.9% Normal Saline (250mL Bag) 250 ML 125 MM IV (11:24)
--- NOTE | 2023-06-02 14:40 | CHAPLAIN ---
Type of Pastoral Visit ___ Initial Visit _x__ Follow-up Visit ___ On-call Visit ___ General Patient Visit ___ Spiritual Assessment ___ Family Conference ___ Bereavement ___ Rapid Response ___ Code Blue ___ Other (describe below) Pastoral Care Referral From _x__ Patient ___ Family ___ Nurse ___ Physician ___ Gas Or Petroleum Operator ___ Conveyor Operator ___ Other (describe below) Sacrament/Intervention _x__ Active listening ___ Anointing ___ Rastafari ___ Bereavement ___ Communion ___ Janie exploration ___ ___ Life review _x__ Prayer ___ Reconciliation ___ Sacrament of Sick ___ Supportive presence ___ Wedding ___ Other (describe below) Pastoral Comments patient states she is recovering well after surgery and finds many blessings in this situation; pt spouse is with her; pt and spouse speak of their sabianist and janie which helps them in this; no other needs are identified
[2023-06-02 16:00] VITALS: BP 146/82; PULSE 68; RESP 18; TEMP 36.9; O2SAT 96
[2023-06-02 21:13] VITALS: BP 130/71; PULSE 71; RESP 16; TEMP 36.9; O2SAT 94
[2023-06-03 03:15] VITALS: BP 147/78; PULSE 62; RESP 16; TEMP 36.6; O2SAT 94
[2023-06-03] MEDS: Piperacil/Tazobactam 3.375 GM in 0.9% Normal Saline (50mL MB+) 50 ML IV (05:47)
[2023-06-03] MEDS: 0.9% Normal Saline (1000mL) 1,000 ML 80 ML IV (05:48)
[2023-06-03 06:43] LABS: Absolute Lymphocyte Count 1.63 X10^3/uL (0.83-4.51); Absolute Neutrophil Count 6.1 X10^3/uL (2.0-7.7); Basophil# 0.07 X10^3/uL; Basophil% 0.8 % (0-1); Eosinophil# 0.43 X10^3/uL; Eosinophils% 4.7 % (0-5); Hematocrit 37.1 % (37-47); Hemoglobin 12.2 g/dL (12.0-15.0); Lymphocyte # 1.63 X10^3/ul (0.83-4.51); Lymphocyte % 17.8 % (19-41); Mean Corp Hgb Conc 32.9 g/dL (32-36); Mean Corpuscular Hgb 30.7 pg (27.0-32.0); Mean Corpuscular Volume 93.2 fL (81-99); Mean Platelet Vol. 9.9 fl (6.2-12.0); Monocyte# 0.83 X10^3/uL; Monocyte% 9.1 % (0-10); NRBC Flagged by Analyzer 0 % (0-5); Neutrophil % 66.6 % (47-70); Platelet Count 274 K/mm3 (150-450); RBC Distribution Width CV 13.3 % (11.6-14.6); RBC Distribution Width SD 45.9 fl (35.1-43.9); Red Blood Count 3.98 M/mm3 (4.2-5.4); White Blood Count 9.2 K/mm3 (4.4-11.0)
[2023-06-03 07:09] LABS: Anion Gap 4 (5-15); BUN 5 mg/dL (7-18); BUN/Creat Ratio 8.6 RATIO (10-20); Calcium,Total 8.3 mg/dL (8.5-10.1); Chloride 106 mmol/L (98-107); Creatinine, Serum 0.58 mg/dL (0.55-1.02); EST Glomerular Filtration Rate 115 mL/min (>60); Est Glom Filt Rate - Afr Amer 139 mL/min (>60); Estimated Creatinine Clearance 106.58 ml/min; Glucose 104 mg/dL (74-106); Sodium Level 139 mmol/L (136-145)
[2023-06-03 07:21] LABS: Phosphorus 3.1 mg/dL (2.5-4.9)
--- NOTE | 2023-06-03 07:41 | PCM.PN.SRG ---
Subjective Subjective Patient seen and examined during AM rounds. She is found resting in bed. She states she had a difficult weekend but yesterday was productive with return of bowel function. She claims she had approximately 10 watery stools. She also requests a diet and states that she is hungry after only doing liquids yesterday. She denies any significant abdominal discomfort apart from her incisions. Objective Data Objective Data Vital Signs: Vital Signs Temp Pulse Resp BP Pulse Ox O2 Del Method O2 Flow Rate 97.9 F 62 16 147/78 H 94 Room Air 2 06/03/23 03:15 06/03/23 03:15 06/03/23 03:15 06/03/23 03:15 06/03/23 03:15 06/03/23 03:15 05/30/23 11:47 Oxygen Flow Rate (L/min) 2 Oxygen Delivery Method Room Air Weight: 208 lb 5.389 oz Body Mass Index (BMI) 32.6 Intake & Output: Intake and Output for Last 24 Hours 06/01/23 06/02/23 06/03/23 23:59 23:59 23:59 Intake Total 3034.04 / 3134.04 2431.96 / 2431.96 1104.67 / 1104.67 Output Total 1200 / 1200 1660 / 1660 40 / 40 Balance 1834.04 / 1934.04 771.96 / 771.96 1064.67 / 1064.67 Lab / Micro Data 06/03/23 06:10 06/03/23 06:10 Labs: Laboratory Results - last 24 hr 06/02/23 05:30: Phosphorus 2.4 L 06/03/23 06:10: WBC 9.2, RBC 3.98 L, Hgb 12.2, Hct 37.1, MCV 93.2, MCH 30.7, MCHC 32.9, RDW Std Deviation 45.9 H, RDW Coeff of Sandip 13.3, Plt Count 274, MPV 9.9, Immature Gran % (Auto) 1.000 H, Neut % (Auto) 66.6, Lymph % (Auto) 17.8 L, [place] % (Auto) 9.1, Eos % (Auto) 4.7, Baso % (Auto) 0.8, Absolute Neuts (auto) 6.1, Absolute Lymphs (auto) 1.63, Nucleated RBC % 0, Sodium 139, Potassium 3.0 L, Chloride 106, Carbon Dioxide 29.0, Anion Gap 4 L, BUN 5 L, Creatinine 0.58, Estim Creat Clear Calc 106.58, Est GFR (MDRD) Af Amer 139, Est GFR (MDRD) Non-Af 115, BUN/Creatinine Ratio 8.6 L, Glucose 104, Calcium 8.3 L, Phosphorus 3.1 Micro: Microbiology 05/30/23 07:22 Aspirate - Other Gram Stain - Final 05/30/23 07:22 Aspirate - Other Wound Culture - Preliminary Escherichia coli Klebsiella pneumoniae sp pneum Alpha hemolytic organism 05/30/23 07:22 Aspirate - Other Anaerobic Culture - Preliminary Checking for anaerobes, further studies to follow. Physical Exam Const oriented x3 and no apparent distress Resp normal respiratory effort GI GI Narrative: Nondistended, soft, operative sites appropriate, left lower quadrant drain with serous fluid. Appropriately tender to palpation. Assessment & Plan Assessment/Plan (1) Acute appendicitis: QUALIFIERS: Acute appendicitis type: with localized peritonitis Appendicitis gangrene presence: without gangrene Appendicitis perforation presence: with perforation Appendicitis abscess presence: unspecified whether abscess present Qualified Code(s): K35.32 - Acute appendicitis with perforation, localized peritonitis, and gangrene, without abscess PLAN: Patient is status post laparoscopic appendectomy with drain placement for perforated appendicitis WBC remains normal Plan to replace potassium again today Increase to regular diet SARA with serous output?plan to discontinue today Transition to oral antibiotics Probable discharge later today Charges/Coding Visit Charges Inpatient E&M: 26727 Subs Hosp L2
[2023-06-03 07:55] VITALS: BP 158/82; PULSE 67; RESP 16; TEMP 37.1; O2SAT 95
[2023-06-03] MEDS: Potassium Chloride Oral Tablet 20 MEQ 60 MEQ PO (09:27)
[2023-06-03] MEDS: Enoxaparin 40 MG/0.4 ML Syringe SC (10:10)
[2023-06-03 13:25] VITALS: BP 142/81; PULSE 76; RESP 16; TEMP 36.8; O2SAT 94
--- NOTE | 2023-06-03 13:28 | DS.PCM_ITS ---
Providers Date of Admission: 05/30/23 Primary Care Physician: No Primary Care Phys Reason For Visit: ACUTE APPENDICITIS Diagnosis Discharge Diagnosis (1) Acute appendicitis: Status: Acute Code(s): K35.80 - Unspecified acute appendicitis Qualifiers: Acute appendicitis type: with localized peritonitis Appendicitis gangrene presence: without gangrene Appendicitis perforation presence: with perforation Appendicitis abscess presence: unspecified whether abscess present Qualified Code(s): K35.32 - Acute appendicitis with perforation, localized peritonitis, and gangrene, without abscess Plan: I am following this patient in conjunction with Dr. Acosta in Dr. Feliciano's absence. WBC has returned to normal Awaiting phos lab work Plan to replace potassium once phos has returned Increase to clear liquid diet has had 290 cc out since 0300 AM this morning. Continue to leave and monitor Obtain lab work tomorrow morning Possible discharge tomorrow We will continue to monitor this patient Medications at Discharge Home Medications amoxicillin 875 mg-potassium clavulanate 125 mg tablet 1 tab PO BIDCM #3 tabs 06/03/23 Hospital Course Operations appendectomy (Laparoscopic appendectomy with drain placement) Summary of Care Provided Minutes Spent on Discharge: 20 Hospital Course: Patient is a 57 y/o F who presented with acute onset of abdominal pain with associated nausea, vomiting and diarrhea. Patient developed worsening abdominal pain which prompted her to proceed to the ED. CT scan of the abdomen/pelvis demonstrated acute appendicitis with free fluid. Dr. Feliciano performed a laparoscopic appendectomy with drain placement on 05/30/23. Patient tolerated the procedure well. Patient continued to have an elevated white cont over the weekend and was managed with IV antibiotics. On POD # 3, patient was placed on a clear liquid diet and tolerated without any nausea, vomiting or abdominal pain. Upon discharge, patient tolerated a regular diet. She denies nausea, vomiting, fever. SARA drain was removed on POD #4. Patient has been having positive flatus and diarrhea. Patient will be provided an additional day of oral antibiotics, Augmentin. Patient will need to start a probiotic once the antibiotics are completed. Follow-up with Dr. Feliciano in 7-10 days. Weight / BMI Weight Weight: 208 lb 5.389 oz Body Mass Index (BMI) 32.6 ABG / Lab / Microbiology Data 06/03/23 06:10 06/03/23 06:10 Laboratory: Laboratory Results - last 24 hr 06/03/23 06:10: WBC 9.2, RBC 3.98 L, Hgb 12.2, Hct 37.1, MCV 93.2, MCH 30.7, MCHC 32.9, RDW Std Deviation 45.9 H, RDW Coeff of Sandip 13.3, Plt Count 274, MPV 9.9, Immature Gran % (Auto) 1.000 H, Neut % (Auto) 66.6, Lymph % (Auto) 17.8 L, [place] % (Auto) 9.1, Eos % (Auto) 4.7, Baso % (Auto) 0.8, Absolute Neuts (auto) 6.1, Absolute Lymphs (auto) 1.63, Nucleated RBC % 0, Sodium 139, Potassium 3.0 L , Chloride 106, Carbon Dioxide 29.0, Anion Gap 4 L, BUN 5 L, Creatinine 0.58, Estim Creat Clear Calc 106.58, Est GFR (MDRD) Af Amer 139, Est GFR (MDRD) Non-Af 115, BUN/Creatinine Ratio 8.6 L, Glucose 104, Calcium 8.3 L, Phosphorus 3.1 Microbiology: Microbiology 05/30/23 07:22 Aspirate - Other Gram Stain - Final 05/30/23 07:22 Aspirate - Other Wound Culture - Final Escherichia coli Klebsiella pneumoniae sp pneum Streptococcus sanguinis 05/30/23 07:22 Aspirate - Other Anaerobic Culture - Preliminary Gram negative michael D/C Instructions Discharge Diet: Light diet - advance as tolerated Call your doctor if your incision/area has: Continuous Slow Oozing, Sudden Increased Bleeding, Increased Pain/ Swelling, Increased Redness, Foul Smelling Discharge and Swelling at the incision site Call your doctor if you observe: Fever of 101 or Higher Suture Line Care: Avoid Pulling/Pushing and Avoid Pinching/Bending Cleanse incision/area with: Soap & Water Please Follow Up With: Richmond Feliciano MD When: Please call [phone] for an appointment in 7-10 days from surgery Meaningful Use Info Meaningful Use Diagnoses (Choose all that apply): None applicable Discharge Plan Admission Admit Date/Time: 05/30/23 15:15 Primary Reason for Your Visit: Acute complicated appendicitis Attending Provider: Richmond Feliciano Primary Care Provider: Care Physician,No Primary Instructions Additional Instructions / Restrictions: Appendectomy Diet ? Start light with soups and soft bland foods. You may advance diet as tolerated. Activity ? You may drive in 3-5 days ? Encourage walking. You may go up steps, one at a time. ? Do not swim or use hot tubs for 2 weeks. ? For comfort, you may use warm compresses or ice as needed for 15-20 minutes at a time. Lifting ? You may lift up to 15 pounds for the first 2 weeks. . Dressings/Incision Keep drain site covered with gauze dressing and dry for 48 hours ? Do NOT tub bathe for 1 week ? Leave plastic dressings on for 3 days. ? When plastic dressings are removed, you will find steri-strips. It is okay to continue showering with them in place, pat them dry. ? You may remove steri-strips after 1 week. We recommend getting them soaking wet for easier removal. Medications You will be taking Augmentin for an additional day. Once completed, please start a Probiotic over the counter on . You may alternate Tylenol and Ibuprofen over the next 48 hours as needed for pain. ? Anesthesia used during surgery and pain medications may cause constipation. I recommend initiating on the day of surgery a fiber supplement like, Metamucil, Citrucel, FiberCon, Benefiber, or a generic form of these medications. 1 heaping tablespoon in water daily. You may continue to utilize any bowel regimen or oral laxatives that you routinely take. ? As long as you are not intolerant to Tylenol, acetaminophen, ibuprofen, Motrin, Advil, Aleve, or similar medications, I would recommend transitioning to these [id number] medicines as soon as possible instead of continued use of narcotic pain medication. Follow up ? You should call [facility] soon after surgery, at [phone] option 1 to make a follow up appointment for 7-10 days after your surgery. Discharge Orders/Prescriptions Prescriptions: New amoxicillin-pot clavulanate 875-125 mg Tablet 1 tab PO BIDCM Qty: 3 0RF Referrals / Follow Up: Richmond Feliciano MD [Med Staff - Active Staff] - (Please follow-up in 7-10 days for a post-operative appointment. Please contact our office. ) Care Physician,No Primary [Primary Care Provider] - Disposition Disposition (needs filled in before D/C Order can be placed): Home, Self Care Charges/Coding Visit Charges Inpatient E&M: 21847 Disch Hosp (Post-op; no charge)
--- NOTE | 2023-06-03 13:31 | CASEMGMT ---
RN CM into pt room, pt sitting up in chair. Pt denies needing any help at home. Pt is ready for dc. No homegoing needs noted.
== END 2023-06-03 13:51 | disposition home or self-care (01) | DRG 399 ==
LOC: ED 20:55 → MS3 23:29
PROVIDERS: Physician Assistant; Surgery; Admitting Provider Surgery; Emergency Provider Emergency Medicine; Visit Provider Surgery
PROC: 0DTJ4ZZ Resection of Appendix, Percutaneous Endoscopic Approach (ICD-10-PCS; CPT 44970; principal; 2023-05-30 07:40)
DX: K35.32 Acute appendicitis with perforation, localized peritonitis, and gangrene, without abscess (principal); E83.39 Other disorders of phosphorus metabolism; K80.20 Calculus of gallbladder without cholecystitis without obstruction; R19.7 Diarrhea, unspecified; D25.9 Leiomyoma of uterus, unspecified
CPT/HCPCS: 36415; 74177; 80048; 80053; 81001; 83605; 83690; 83735; 84100; 85025; 87070; 87075; 87077; 87186; 87205; 88304; 93005; 94668; 99284; J7030; J7050; Q9967; A4216; J0744; J2405

== ENCOUNTER 2023-06-09 14:56 | Inpatient (IN) | payer OTHER, SELFPAY ==
[2023-06-09] VITALS (13 sets, daily range): BP systolic 118–153; BP diastolic 59–85; PULSE 74–91; RESP 15–22; TEMP 36.9–37.2; O2SAT 94–98; BMI 32.1; BMI 32.3
--- NOTE | 2023-06-09 15:12 | CT_ITS ---
INDICATION: Abdominal pain status post appendectomy 05/29/2023 with left upper quadrant pain and leukocytosis EXAMINATION: CT ABDOMEN AND PELVIS WITH CONTRAST - CT Abdomen And Pelvis W/ Contrast Injection TECHNIQUE: Helically acquired images were obtained of the abdomen and pelvis following IV contrast. A radiation dose optimization technique was used for this scan. IV Contrast dosage and agent: 100 cc Isovue-370 Oral contrast: Yes. COMPARISON: 05/29/2023 FINDINGS: LOWER CHEST: Left pleural effusion with adjacent consolidation left lower lobe. No cardiomegaly or pericardial effusion. LIVER: Stable enlargement to 22 cm. No focal mass. GALLBLADDER AND BILIARY TREE: Calcified gallstones. No gallbladder distension or wall edema. No intra- or extrahepatic biliary ductal dilation. PANCREAS: No focal cystic or solid mass. SPLEEN: Normal size without focal cystic or solid mass. ADRENAL GLANDS: No nodules. KIDNEYS AND URETERS: Normal renal size and position. No hydronephrosis. PERITONEUM: No ascites or free air. BOWEL: Prior appendectomy. No abnormal small bowel distention. Colon mildly distended with gas and feces to the splenic flexure. No focal inflammatory change. LYMPH NODES: No enlarged mesenteric or retroperitoneal lymph nodes. VESSELS: Aorta is non-dilated. URINARY BLADDER: Unremarkable. REPRODUCTIVE ORGANS: Stable fibroid uterus. BONES: No acute or aggressive abnormality. CT/Abdomen/Pelvis WITH Contrast IMPRESSION: No acute findings in the abdomen or pelvis. Left basilar pleural effusion with consolidation, atelectatic versus infectious. Electronically Signed: Shane Flor MD at 18:16 EDT ,
--- NOTE | 2023-06-09 15:36 | CT_ITS ---
STUDY: CTA CHEST REASON FOR EXAM: Female, 57 years old. Left upper quadrant pain and leukocytosis, appendectomy 05/29/2023 RADIATION DOSAGE (If Supplied By Facility): CTDIvol = ( 14.61 ) mGy, DLP = ( 1494.99 ) mGycm TECHNIQUE: The examination was performed with the intravenous administration of 100 cc Isovue-370. Post-processing of the angiographic images was performed, with multiplanar reformation and 3D reconstruction. Individualized dose optimization techniques were used for this CT. COMPARISON: None. FINDINGS: Normal enhancement of the main pulmonary artery and right and left pulmonary arteries. Normal enhancement of the bilateral peripheral pulmonary arteries. There is no demonstrated pulmonary embolism. 3.7 cm ectasia ascending aorta. There is no demonstrated aortic dissection. Normal heart and pericardium. Normal mediastinum. Normal hilar regions. Loculated left pleural effusion with left lower lobe consolidation. Normal chest wall structures. No acute osseous abnormality. No acute findings in the upper abdomen. CT/CTA Chest W/WO Contrast IMPRESSION: Normal CTA chest examination, without a demonstrated pulmonary embolism or arterial dissection. Loculated left pleural effusion with left lower lobe consolidation, atelectatic versus infectious. Electronically Signed: Shane Flor MD at 18:23 EDT ,
[2023-06-09] MEDS: Ondansetron 4 MG/2 ML Vial IV (15:39)
[2023-06-09] MEDS: 0.9% Normal Saline (1000mL) 1,000 ML 1000 ML IV (15:39)
[2023-06-09] MEDS: fentaNYL 100 MCG/2 ML Ampul 50 MCG IV (15:39)
--- NOTE | 2023-06-09 15:45 | EDS_ITS ---
HPI HPI - GI History of Present Illness Chief Complaint: Abd Pain Narrative Narrative: 57-year-old female presenting with left upper quadrant abdominal pain. She states it does not really hurt and when she takes a deep breath. Initially it started off as small spasms which have become more constant today. Today she reports a low-grade fever of 101 ?F. She last took Tylenol at about noon today and notes a fever before leaving for the emergency room. Patient is postop day #11 status post ruptured appendicitis with Dr. Feliciano. Patient states he was in the hospital for 6 days. Upon leaving she was pain-free and fever free. Patient states this pain started a couple of days ago. She is having bowel movements. She is passing flatus. She denies any urinary complaints. She is not nauseous. [facility] Medical History Abdominal pain Home Medications estradiol 1 mg tablet (Estrace) 1 mg PO DAILY 06/09/23 [History Last Taken 06/07/23] Allergy/AdvReac Type Severity Reaction Status Date / Time erythromycin base AdvReac Upset Verified 06/09/23 14:56 Stomach Social History Smoking Status: Never smoker ROS ROS ED Constitutional Constitutional ED: Denies chills, fever(s) or sweats Eyes Eyes: Denies blurry vision or change in vision ENT ENT ED: Denies ear pain or sore throat Cardiovascular Cardiovascular: Denies chest pain, palpitations or racing heartbeat Respiratory/Chest Respiratory/Chest: Denies cough, dyspnea or sputum Gastrointestinal Gastrointestinal: Reports abdominal pain; Denies constipation, diarrhea, nausea or vomiting Genitourinary Genitourinary ED: Denies dysuria, hematuria or urinary frequency Musculoskeletal Musculoskeletal: Denies arthralgias, myalgias or neck pain Integumentary Denies abscess, Abrasions or rash Neurologic Neurologic: Denies headache(s), paresthesias or weakness Psychiatric Psychiatric: Denies anxiety, depression, suicidal ideation or suicidal thoughts Endocrine Endocrinology: Denies polydipsia or polyuria EXAM Physical Exam Const Vital Signs: 06/09/23 14:56 06/09/23 15:35 06/09/23 17:11 Temperature 98.8 F Temperature Source Temporal Pulse Rate 91 78 85 Respiratory Rate 16 16 22 H Blood Pressure 125/77 H 126/78 H 131/69 H Blood Pressure Mean 93 94 89 Pulse Ox 95 98 94 Oxygen Delivery Method Room Air Room Air Room Air 06/09/23 18:58 06/09/23 19:08 06/09/23 19:21 Temperature 98.5 F Temperature Source Pulse Rate 74 74 82 Respiratory Rate 15 21 H 21 H Blood Pressure 118/60 133/80 H 132/77 H Blood Pressure Mean 79 97 95 Pulse Ox 97 94 94 Oxygen Delivery Method Room Air Room Air 06/09/23 19:22 Temperature 98.5 F Temperature Source Oral Pulse Rate 81 Respiratory Rate 16 Blood Pressure 132/77 H Blood Pressure Mean 95 Pulse Ox 94 Oxygen Delivery Method Room Air Positive well nourished and well developed General Appearance ED: well developed and NAD; Negative for pallor HEENT Reports moist mucous membranes normocephalic and atraumatic Eyes PERRL Resp normal respiratory effort and clear to auscultation bilaterally Auscultation: Negative for rales, rhonchi or wheezes Cardio regular rate and regular rhythm GI non-distended and no masses GI Narrative: Mild tenderness in the right lower quadrant. No reproducible left upper quadrant pain. No epigastric pain. No CVA tenderness. Back/Spine no CVA tenderness Neuro CN's II-XII intact bilaterally, moves all extremities and no sensory deficits noted Sensorium / Orientation: alert Motor Exam: strength 5/5 throughout and general weakness Psych mental status grossly normal and thought process normal Skin Skin Narrative: Incision sites clean, dry, intact. General Skin Exam: Negative for jaundice or pallor MDM MDM MDM Narrative Medical decision making narrative: 57-year-old female presenting with left upper quadrant pain. Unable able to reproduce this pain on examination. She has no CVA tenderness. She has mild right lower quadrant tenderness. She reports that she had a fever of 101 ?F at home before leaving for the ER. She had taken Tylenol at noon however she is afebrile here and she was 98.6 by oral thermometer performed by myself. Lungs are clear to auscultation. Since she did have a recent surgery I do have to consider PE as she has pain with deep inspiration. I will obtain an EKG to assess heart rhythm as well as high-sensitivity troponin assess for ischemia. Patient presenting with right flank pain. Differential includes colitis, diverticulitis, gastritis, pancreatitis, constipation, UTI, pyelonephritis, renal calculi, ureteral calculi, bowel obstruction, malignancy, dehydration, electrolyte abnormalities, , ectopic , ovarian cyst, ovarian torsion. Since patient is having a fever I will obtain blood cultures and a lactic acid. CBC to obtain white blood cell count, hemoglobin, platelets. CMP to assess liver function, renal function, electrolytes. Urinalysis to assess for UTI. CBC shows a leukocytosis of 14.8. Hemoglobin 11.6. Platelets are 355. Renal function is normal. LFTs are slightly bumped with an alkaline phosphatase of 186, ALT 72, AST 50. Lactic acid within normal limits at 1.9. Patient was cultured. This was negative. Patient initially given a dose of fentanyl which did relieve her pain however getting up to ambulate she has exquisite pain in the left upper quadrant. She was given a second dose. She did not become hypoxic when ambulating however. CT abdomen pelvis with IV and p.o. contrast shows no acute intra-abdominal process however CTA of the chest was obtained to rule out PE and does show a loculated left pleural effusion and left lower lobe consolidation. Patient was given vancomycin and Zosyn. Discussed with her surgeon who did not think there was anything abdominal. Stone huang will be admitted to medicine. Discussed with hospitalist for admission. Impression: 1. Loculated left pleural effusion 2. Left lower lobe infiltrate 3. leukocytosis 4. History of perforated appendicitis Lab Data Attestation: I reviewed the patient's lab results. Labs: Laboratory Results - last 24 hr 06/09/23 06/09/23 06/09/23 15:35 15:35 16:34 WBC 14.8 H RBC 3.71 L Hgb 11.6 L Hct 35.2 L MCV 94.9 MCH 31.3 MCHC 33.0 RDW Std Deviation 47.5 H RDW Coeff of Sandip 13.6 Plt Count 355 MPV 9.9 Immature Gran % (Auto) 0.900 Neut % (Auto) 77.8 H Lymph % (Auto) 10.2 L [place] % (Auto) 9.0 Eos % (Auto) 1.7 Baso % (Auto) 0.4 Absolute Neuts (auto) 11.5 H Absolute Lymphs (auto) 1.51 Nucleated RBC % 0 Sodium 134 L Potassium 3.5 Chloride 100 Carbon Dioxide 27.0 Anion Gap 7 BUN 9 Creatinine 0.74 Estim Creat Clear Calc 83.53 Est GFR (MDRD) Af Amer 104 Est GFR (MDRD) Non-Af 86 BUN/Creatinine Ratio 12.1 Glucose 119 H Lactic Acid 1.9 Calcium 9.1 Total Bilirubin 0.40 AST 50 H ALT 72 H Alkaline Phosphatase 186 H Troponin I High Sens 12 Total Protein 6.9 Albumin 2.7 L Globulin 4.2 Albumin/Globulin Ratio 0.6 L Lipase 39 40 Urine Color Yellow Urine Clarity Clear Urine pH 6.5 Ur Specific [place] 1.010 Urine Protein 15 H Urine Glucose (UA) Normal Urine Ketones Negative Urine Occult Blood 50 H Urine Nitrite Negative Urine Bilirubin Negative Urine Urobilinogen Normal Ur Leukocyte Esterase Negative Urine RBC 0 SEEN Urine WBC 0 SEEN Ur Squamous Epith Cells 0 SEEN Urine Bacteria 0 SEEN Urine Mucus 0 SEEN Radiography Diagnostic Testing: Clinical Impression(s) from Imaging Studies Abdomen/Pelvis CT 06/09/23 15:12 IMPRESSION: No acute findings in the abdomen or pelvis. Left basilar pleural effusion with consolidation, atelectatic versus infectious. Electronically Signed: Shane Flor MD at 18:16 EDT , Chest CTA 06/09/23 15:36 IMPRESSION: Normal CTA chest examination, without a demonstrated pulmonary embolism or arterial dissection. Loculated left pleural effusion with left lower lobe consolidation, atelectatic versus infectious. Electronically Signed: Shane Flor MD at 18:23 EDT , Discharge Plan Triage Chief Complaint: Abd Pain ED Provider: Jovi Yu Dx/Rx/DC Orders Primary Care Provider: Care Physician,No Primary
--- NOTE | 2023-06-09 15:47 | EKG12_ITS ---
Test Reason : ABD PAIN/CP Blood Pressure : / mmHG Vent. Rate : 071 BPM Atrial Rate : 071 BPM P-R Int : 134 ms QRS Dur : 088 ms QT Int : 394 ms P-R-T Axes : 034 008 049 degrees QTc Int : 428 ms Normal sinus rhythm Normal ECG When compared with ECG of 30-MAY-2023 02:29, MANUAL COMPARISON REQUIRED, DATA IS UNCONFIRMED Confirmed by SRUTHI QUIROZ, CALIXTO ([id number]), news assignment editor FANNY VARGHESE ([id number]) on 06/11/2023 2:27:11 PM Referred By: DAVID Confirmed By:CALIXTO NEGRO MD
[2023-06-09 15:49] LABS: Absolute Lymphocyte Count 1.51 X10^3/uL (0.83-4.51); Absolute Neutrophil Count 11.5 X10^3/uL (2.0-7.7); Basophil# 0.06 X10^3/uL; Basophil% 0.4 % (0-1); Eosinophil# 0.25 X10^3/uL; Eosinophils% 1.7 % (0-5); Hematocrit 35.2 % (37-47); Hemoglobin 11.6 g/dL (12.0-15.0); Lymphocyte # 1.51 X10^3/ul (0.83-4.51); Lymphocyte % 10.2 % (19-41); Mean Corpuscular Hgb 31.3 pg (27.0-32.0); Mean Corpuscular Volume 94.9 fL (81-99); Mean Platelet Vol. 9.9 fl (6.2-12.0); Monocyte# 1.34 X10^3/uL; NRBC Flagged by Analyzer 0 % (0-5); Neutrophil # 11.53 X10^3/uL (2.7-7.7); Neutrophil % 77.8 % (47-70); Platelet Count 355 K/mm3 (150-450); RBC Distribution Width CV 13.6 % (11.6-14.6); RBC Distribution Width SD 47.5 fl (35.1-43.9); Red Blood Count 3.71 M/mm3 (4.2-5.4); White Blood Count 14.8 K/mm3 (4.4-11.0)
[2023-06-09 16:21] LABS: ALB/GLOB Ratio 0.6 RATIO (0.9-2.4); AST(SGOT) 50 U/L (15-37); Alanine Aminotransfer ALT/SGPT 72 U/L (13-56); Albumin, Serum 2.7 g/dL (3.2-5.0); Alkaline Phosphatase 186 U/L (45-117); Anion Gap 7 (5-15); BUN 9 mg/dL (7-18); BUN/Creat Ratio 12.1 RATIO (10-20); Calcium,Total 9.1 mg/dL (8.5-10.1); Chloride 100 mmol/L (98-107); Creatinine, Serum 0.74 mg/dL (0.55-1.02); EST Glomerular Filtration Rate 86 mL/min (>60); Est Glom Filt Rate - Afr Amer 104 mL/min (>60); Estimated Creatinine Clearance 83.53 ml/min; Globulin 4.2 g/dL (2.2-4.2); Glucose 119 mg/dL (74-106); Lipase 39 U/L (13-75); Potassium 3.5 mmol/L (3.5-5.1); Protein, Total 6.9 g/dL (6.4-8.2); Sodium Level 134 mmol/L (136-145)
[2023-06-09 16:22] LABS: Lipase 40 U/L (13-75)
[2023-06-09 16:26] LABS: Troponin-I HS 12 pg/mL (3.0-54.0)
[2023-06-09 16:27] LABS: Lactic Acid 1.9 mmol/L (0.4-1.9)
[2023-06-09 16:40] LABS: Bacteria 0 SEEN /hpf (None Seen); Mucous, Urine 0 SEEN /hpf (<or=2+); Red Blood Cells-Urine 0 SEEN /hpf (0-5); Squamous Epithelial Cells - UA 0 SEEN /hpf (5-10); White Blood Cells 0 SEEN /hpf (0-5)
[2023-06-09 16:48] LABS: Color, Urine Yellow (Yellow); Glucose, Dipstick Normal (Normal); Ketone-Dipstick Negative (Negative); Leukocyte Esterase-Dipstick Negative /ul (Negative); Nitrite-Dipstick Negative (Negative); Occult Blood-Urine 50 /ul (Negative); Protein-Dipstick 15 mg/dl (Negative); Urine Bilirubin Dipstick Negative (Negative); Urine Clarity Clear (Clear); Urine Urobilinogen Normal (Normal); Urine pH 6.5 (5.0 - 8.0)
[2023-06-09] MEDS: 0.9% Normal Saline (1000mL) 1,000 ML 999 ML IV (17:18)
[2023-06-09] MEDS: Piperacil/Tazobactam 3.375 GM in 0.9% Normal Saline (50mL MB+) 50 ML IV ×2 (17:34→21:41)
[2023-06-09] MEDS: Vancomycin HCl 1,500 MG in 0.9% Normal Saline (500mL Bag) 500 ML 250 MG IV (18:20)
[2023-06-09] MEDS: fentaNYL 100 MCG/2 ML Ampul 25 MCG IV (19:09)
--- NOTE | 2023-06-09 19:33 | PCM.HP.STD ---
HPI - General General Date of Admission: 06/09/23 Date of Service: 06/09/23 Chief Complaint: Pain under left breast HPI Narrative DENISE BELLE, is a 57 F who is postmenopausal on estradiol; and who had recent laparoscopic appendectomy on 05/30/2023 presents emergency department with excruciating pain under her left breast. Her pain started about 4 days ago. Her pain is severe and it has been progressively getting worse. She describes her pain as a cramping, spasm, sharp and stabbing pain that used to last for 10 to 15 seconds and has gradually worsened in frequency and in duration. After her episodic pain patient has about 30 seconds of soreness. Her pain worsens with taking a deep breath. The pain improves with taking a hot shower. She reports objective fever of about 100.3 F. Reportedly her fever is under control with alternating Tylenol and Advil that her surgeon prescribed for her abdominal pain. She does not have any abdominal pain except when she had IV contrast for CT at the emergency department on this new day of presentation. The pain under her left breast radiates to her left flank. [facility] Medical History Abdominal pain Home Medications estradiol 1 mg tablet (Estrace) 1 mg PO DAILY 06/09/23 [History Last Taken 06/07/23] Allergy/AdvReac Type Severity Reaction Status Date / Time erythromycin base AdvReac Upset Verified 06/09/23 14:56 Stomach Family History Other A-fib CVA (cerebral vascular accident) Cancer Congestive heart failure Crohn's disease Lung cancer Saddle pulmonary embolus Sarcoidosis Surgical History H/O dilation and curettage Hx of appendectomy Social History Smoking Status: Never smoker ROS ROS Narrative Pertinent positives and pertinent negatives as noted in HPI. All other systems were reviewed and are negative Vital Signs Vital Signs Vital Signs: 06/09/23 14:56 06/09/23 15:35 06/09/23 17:11 Temperature 98.8 F Temperature Source Temporal Pulse Rate 91 78 85 Respiratory Rate 16 16 22 H Blood Pressure 125/77 H 126/78 H 131/69 H Blood Pressure Mean 93 94 89 Pulse Ox 95 98 94 Oxygen Delivery Method Room Air Room Air Room Air 06/09/23 18:58 06/09/23 19:08 06/09/23 19:21 Temperature 98.5 F Temperature Source Pulse Rate 74 74 82 Respiratory Rate 15 21 H 21 H Blood Pressure 118/60 133/80 H 132/77 H Blood Pressure Mean 79 97 95 Pulse Ox 97 94 94 Oxygen Delivery Method Room Air Room Air 06/09/23 19:22 Temperature 98.5 F Temperature Source Oral Pulse Rate 81 Respiratory Rate 16 Blood Pressure 132/77 H Blood Pressure Mean 95 Pulse Ox 94 Oxygen Delivery Method Room Air Weight Weight: 92.986 kg Body Mass Index (BMI) 32.1 Physical Exam Narrative Physical exam: General: In distress from pain in the left breast Head: Normocephalic, atraumatic, no tenderness Eyes: Vision is grossly intact. EOMI ENT, no trauma, moist mucous membranes, no rhinorrhea Neck: Nontender, No thyromegaly. CVS: Regular rate and rhythm. S1-S2 present. No murmur, gallop or rub. Respiratory : clear to auscultation bilaterally, chest wall nontender Abdomen: Steri-Strips on abdomen dry and intact. Soft, nontender, nondistended, normal bowel sounds, no masses : Deferred Back: Nontender, no CVA tenderness. Extremities: Nontender full range of motion, no trauma Skin: Normal color, no trauma, abrasions Neuro: Alert, oriented, cranial nerves II through XII grossly intact. Psychiatry: Normal mood. Normal affect. Not depressed. Not anxious. Results Lab / Micro Data 06/10/23 07:22 06/09/23 15:35 Labs: Laboratory Results - last 24 hr 06/09/23 15:35: WBC 14.8 H, RBC 3.71 L, Hgb 11.6 L, Hct 35.2 L, MCV 94.9, MCH 31.3, MCHC 33.0, RDW Std Deviation 47.5 H, RDW Coeff of Sandip 13.6, Plt Count 355, MPV 9.9, Immature Gran % (Auto) 0.900, Neut % (Auto) 77.8 H, Lymph % (Auto) 10.2 L, [place] % (Auto) 9.0, Eos % (Auto) 1.7, Baso % (Auto) 0.4, Absolute Neuts (auto) 11.5 H, Absolute Lymphs (auto) 1.51, Nucleated RBC % 0, Sodium 134 L, Potassium 3.5, Chloride 100, Carbon Dioxide 27.0, Anion Gap 7, BUN 9, Creatinine 0.74, Estim Creat Clear Calc 83.53, Est GFR (MDRD) Af Amer 104, Est GFR (MDRD) Non-Af 86, BUN/Creatinine Ratio 12.1, Glucose 119 H, Lactic Acid 1.9, Calcium 9.1, Total Bilirubin 0.40, AST 50 H, ALT 72 H, Alkaline Phosphatase 186 H, Troponin I High Sens 12, Total Protein 6.9, Albumin 2.7 L, Globulin 4.2, Albumin/Globulin Ratio 0.6 L, Lipase 39 06/09/23 15:35: Lipase 40 06/09/23 16:34: Urine Color Yellow, Urine Clarity Clear, Urine pH 6.5, Ur Specific [place] 1.010, Urine Protein 15 H, Urine Glucose (UA) Normal, Urine Ketones Negative, Urine Occult Blood 50 H, Urine Nitrite Negative, Urine Bilirubin Negative, Urine Urobilinogen Normal, Ur Leukocyte Esterase Negative, Urine RBC 0 SEEN, Urine WBC 0 SEEN, Ur Squamous Epith Cells 0 SEEN, Urine Bacteria 0 SEEN, Urine Mucus 0 SEEN Radiology Impression Abdomen/Pelvis CT 06/09/23 15:12 IMPRESSION: No acute findings in the abdomen or pelvis. Left basilar pleural effusion with consolidation, atelectatic versus infectious. Electronically Signed: Shane Flor MD at 18:16 EDT Reading Location ID and State: [facility] / [place] Tel , Service support , Chest CTA 06/09/23 15:36 IMPRESSION: Normal CTA chest examination, without a demonstrated pulmonary embolism or arterial dissection. Loculated left pleural effusion with left lower lobe consolidation, atelectatic versus infectious. Electronically Signed: Shane Flor MD at 18:23 EDT Reading Location ID and State: [facility] / [place] Tel , Service support , Assessment & Plan Assessment/Plan (1) Pneumonia: QUALIFIERS: Laterality: left Lung location: lower lobe of lung Pneumonia type: due to unspecified organism Qualified Code(s): J18.9 - Pneumonia, unspecified organism (2) Parapneumonic effusion: (3) Elevated liver enzymes: PLAN: Plan Pneumonia parapneumonic effusion Impression of chest CTA by radiologist: Normal CTA chest examination, without demonstrated pulmonary embolism or acute dissection. Loculated left pleural effusion with left lower lobe consolidation; atelectatic versus infectious. MRSA nasal screen ordered. Strep pneumoniae and Legionella urine antigen ordered. Vancomycin and Zosyn started emergency department and continued. Ultrasound-guided thoracentesis ordered with pleural studies including fluid cultures. CBC on presentation was 14.8; trend Elevated liver enzymes AST on presentation was 50 (normal 15- 37) ALT was 72 (normal 13-56) alkaline phosphatase was 186 (normal 45-117) Check acute hepatitis panel. Trend CMP Check CMV IgM and EBV IgM. Perforated appendicitis status post laparoscopic appendectomy and treatment with antibiotics Impression of abdomen/pelvis CT by radiologist: Abdomen/pelvis CT with no acute findings in the abdominal pelvis but of left basilar pleural effusion with consolidation, atelectatic versus infectious. DVT prophylaxis SCDs ordered Time spent in the patient's overall evaluation,decision-making process, review of diagnostic data, adjustment of management, discussion with other providers, nursing and ancillary staff involved in patient's care documentation, 70 minutes. Charges/Coding Visit Charges Inpatient E&M: 52552 Init Hosp L3
--- NOTE | 2023-06-09 21:18 | US_ITS ---
PROCEDURE: ULTRASOUND GUIDED THORACENTESIS. DATE: June 10, 2023. INDICATION: Female, 57 years old. Left pleural effusion. PHYSICIAN: Juventino Leyva M.D. PROCEDURE: The risks, benefits, and alternatives to the procedure were explained to the patient. The specific risks of bleeding, infection, and pneumothorax requiring chest tube insertion were discussed and accepted. Written informed consent was obtained. Ultrasonographic evaluation of the left lower pleural space was carried out. An adequate pocket was identified. The patient was placed in the sitting, upright position. The overlying skin was prepped and draped in sterile fashion. 1% lidocaine was administered subcutaneously for local anesthesia. Under ultrasound guidance, a 5 Fijian thoracentesis needle/catheter system was advanced into the left posterior lower pleural fluid collection. Approximately 530 mL of blood-tinged fluid was drained. The catheter was removed, and a sterile dressing was applied. A specimen was collected and sent to the laboratory for analysis, as requested by the referring clinician. The patient tolerated the procedure well. A chest x-ray was ordered. US/Thoracentesis W US IMPRESSION: Ultrasound-guided left thoracentesis. Electronically Signed: Juventino Leyva MD at 12:56 EDT ,
[2023-06-09] MEDS: 0.9% Normal Saline (1000mL) 1,000 ML 75 ML IV (21:21)
--- NOTE | 2023-06-09 21:42 | PCM.RX.CS ---
Consult Antibiotic Management Pharmacy has been consulted to manage selected antiobiotic: Vancomycin Type of Intervention Type of Consult: New start Suspected Infection Suspected Infection: Pneumonia Labs Labs: Sodium 134 mmol/L (136-145) L 06/09/23 15:35 Potassium 3.5 mmol/L (3.5-5.1) 06/09/23 15:35 Chloride 100 mmol/L (98-107) 06/09/23 15:35 Carbon Dioxide 27.0 mmol/L (21.0-32.0) 06/09/23 15:35 Anion Gap 7 (5-15) 06/09/23 15:35 BUN 9 mg/dL (7-18) 06/09/23 15:35 Creatinine 0.74 mg/dL (0.55-1.02) 06/09/23 15:35 Est GFR (MDRD) Af Amer 104 mL/min (>60) 06/09/23 15:35 Est GFR (MDRD) Non-Af 86 mL/min (>60) 06/09/23 15:35 BUN/Creatinine Ratio 12.1 RATIO (10-20) 06/09/23 15:35 Glucose 119 mg/dL (74-106) H 06/09/23 15:35 Dosing Weight Weight used for dosin.7 kg Estimated Creatinine Clearance Estimated Creatinine Clearance: 84 Goal Trough Goal Trough: 15-20 mcg/mL Pharmacy Plan for Drug Dosing Pharmacy Plan for Drug Dosing: Pharmacy Service will continue to monitor and adjust dosing as required. Follow-Up Labs Follow-Up Labs: Trough: Vancomycin Date/Time Labs Ordered Labs to be done on [date and time ordered]: 06/11/23 @0600
[2023-06-09] MEDS: oxyCODONE 5 MG Tablet PO (22:18)
[2023-06-09] MEDS: MELATONIN 3 MG TABLET PO (22:18)
[2023-06-10] VITALS (9 sets, daily range): BP systolic 100–145; BP diastolic 48–80; PULSE 66–98; RESP 16–81; TEMP 36–37; O2SAT 92–98
--- NOTE | 2023-06-10 | FLU_PTH ---
PATIENT: DENISE BELLE LOC: [facility] U#:[id number] AGE/SX: 57/F ROOM: [facility] RE06/09/[address]: Dr. Rayray Ivory DO : 1965 BED: 1 DIS: 06/13/2023 SPEC #: [id number] RECD: 06/11/23 09:17 STATUS: OUMAR RERoxanne #: [id number] ELIZABETH: 06/10/23 00:[address]: Rayray Ivory DEPT: CYTOLOGY RECD BY: Jacky Peters ENTERED: 06/11/23 09:17 SP TYPE: Fluid OTHR DR: Dr. Jonh Resendiz MD No Primary Care Phys Tissues: THORACIC FLUID Procedures: Special Stain Group II Surgery Specimen Level IV Cytospin Fluid HEADER OPERATION: Thoracentesis left chest PRE-OP DIAGNOSIS: Pleural effusion TISSUE SUBMITTED: Thoracentesis fluid for cytology DIAGNOSIS CYTOLOGY Thoracentesis fluid for cytology (cytospin and cell block): Negative for malignant cells. See comment. SJ:wilda 06/12/2023 COMMENT Clinical correlation and appropriate follow up are necessary. CYTOLOGY STUDY Slides are reviewed. CYTOLOGY GROSS Received is 85 ml of dark red micki fluid labeled with the patient's name and and designated per the requisition as thoracentesis. Submitted for cytology preparation including cell block. / wilda 06/11/2023 TC:5 CPT: 29952, 94048
[2023-06-10] MEDS: oxyCODONE 5 MG Tablet PO ×3 (03:09→22:54)
[2023-06-10] MEDS: Piperacil/Tazobactam 3.375 GM in 0.9% Normal Saline (50mL MB+) 50 ML IV ×3 (06:04→22:55)
[2023-06-10 07:51] LABS: Absolute Lymphocyte Count 1.44 X10^3/uL (0.83-4.51); Absolute Neutrophil Count 8.4 X10^3/uL (2.0-7.7); Basophil# 0.05 X10^3/uL; Basophil% 0.4 % (0-1); Eosinophil# 0.42 X10^3/uL; Eosinophils% 3.7 % (0-5); Hematocrit 33.1 % (37-47); Hemoglobin 10.8 g/dL (12.0-15.0); Lymphocyte # 1.44 X10^3/ul (0.83-4.51); Lymphocyte % 12.6 % (19-41); Mean Corp Hgb Conc 32.6 g/dL (32-36); Mean Corpuscular Volume 95.1 fL (81-99); Mean Platelet Vol. 9.6 fl (6.2-12.0); Monocyte# 1.11 X10^3/uL; Monocyte% 9.7 % (0-10); NRBC Flagged by Analyzer 0 % (0-5); Neutrophil # 8.36 X10^3/uL (2.7-7.7); Neutrophil % 72.8 % (47-70); Platelet Count 387 K/mm3 (150-450); RBC Distribution Width CV 13.8 % (11.6-14.6); RBC Distribution Width SD 48.1 fl (35.1-43.9); Red Blood Count 3.48 M/mm3 (4.2-5.4); White Blood Count 11.5 K/mm3 (4.4-11.0)
[2023-06-10] MEDS: Acetaminophen 325 MG Tablet 650 MG PO ×2 (08:06→18:13)
[2023-06-10] MEDS: Morphine 2 MG/ML Syringe IV ×2 (08:12→11:33)
[2023-06-10] MEDS: 0.9% Saline Lock 10 ML Syringe IV (08:13)
[2023-06-10 08:19] LABS: ALB/GLOB Ratio 0.6 RATIO (0.9-2.4); AST(SGOT) 27 U/L (15-37); Alanine Aminotransfer ALT/SGPT 62 U/L (13-56); Albumin, Serum 2.3 g/dL (3.2-5.0); Alkaline Phosphatase 178 U/L (45-117); Anion Gap 6 (5-15); BUN 8 mg/dL (7-18); BUN/Creat Ratio 12.5 RATIO (10-20); Calcium,Total 8.4 mg/dL (8.5-10.1); Chloride 105 mmol/L (98-107); Creatinine, Serum 0.64 mg/dL (0.55-1.02); EST Glomerular Filtration Rate 102 mL/min (>60); Est Glom Filt Rate - Afr Amer 123 mL/min (>60); Estimated Creatinine Clearance 96.58 ml/min; Glucose 111 mg/dL (74-106); LDH 179 U/L (84-246); Potassium 3.7 mmol/L (3.5-5.1); Protein, Total 6.3 g/dL (6.4-8.2); Sodium Level 138 mmol/L (136-145)
[2023-06-10] MEDS: Vancomycin HCl 1,500 MG in 0.9% Normal Saline (500mL Bag) 500 ML 250 MG IV ×2 (10:40→20:18)
[2023-06-10 11:27] LABS: M R Staph aureus DNA By PCR Negative (Negative); Probe Check PASS; Specimen Processing Control PASS
[2023-06-10] MEDS: Lidocaine 2% (20 ml mdv) 20 ML Vial INFILT (12:05)
--- NOTE | 2023-06-10 12:25 | RAD_ITS ---
STUDY: X-RAY CHEST REASON FOR EXAM: Female, 57 years old. Post thoracentesis TECHNIQUE: A PA inspiration and expiration views. COMPARISON: None. FINDINGS: The patient is status post left thoracentesis. No evidence of pneumothorax. Minimal residual pleural parenchymal changes are seen at the left lung base. RAD/Chest Insp/Exp 2 View IMPRESSION: Status post left thoracentesis. No evidence of pneumothorax. Minimal residual left pleural-parenchymal changes are seen. Electronically Signed: Juventino Leyva MD at 12:58 EDT ,
[2023-06-10 13:11] LABS: Body Fluid Mononuclear WBC # 2.833 10^3/uL; Body Fluid Mononuclear WBC % 52.3 %; Body Fluid Polynuclear WBC # 2.587 10^3/uL; Body Fluid Polynuclear WBC % 47.7 %; Red Cell Count/Body Fluid 0.035 10^6/ul
[2023-06-10 14:01] LABS: Glucose, Body Fluid 99 mg/dL (40-70); LDH,Body Fluid 534 Units/L (Not Establ.); Protein, Body Fluid 4.1 g/dL (Not Establ.)
[2023-06-10 14:14] LABS: Appearance/Body Fluid CLOUDY; Auto B Fluid Analyzer BKGD Ct COUNTS W/IN LIMITS (W/IN LIMITS); Color/Body Fluid RED; Source- Body Fluid THORACENTESIS
--- NOTE | 2023-06-10 14:35 | CASEMGMT ---
KATIUSKA GARLAND chart review: Patient was admitted 05/30-06/03/23 for acute appendicitis. See KATIUSKA GARLAND assessment from 05/30/23. Patient was discharged to home with family support and follow-up plans in place. Patient returned to [facility] ED for abdominal pain. Patient was admitted for pneumonia with parapneumonic effusion. Patient is currently on room air. KATIUSKA GARLAND in to patient's room to discuss discharge needs and readmission. Patient states that she has follow-up appt scheduled with Dr. Feliciano on 06/16/23. Patient states she was taking medications as prescribed. Patient has not yet scheduled to get established with PCP. Patient states she has list from prior admission. KATIUSKA GARLAND encouraged patient to call a schedule appointment with PCP of choice, patient voiced understanding and states she may call now to schedule appointment. Patient denied further needs at discharge. Patient had no further questions or concerns at this time.
[2023-06-10 14:51] LABS: Lymphocytes 26 %; Monocytes 1 %; Neutrophil (Segs) 59 %; Other Cell Type/BF 14 %
[2023-06-10 14:52] LABS: Body Fluid QC Type(s) BF1Q
--- NOTE | 2023-06-10 18:16 | PN.HOSP_ITS ---
Reason for Visit Reason for Visit: Diagnoses Pneumonia, unspecified organism (06/09/23) Pleural effusion in other conditions classified elsewhere (06/09/23) Abnormal levels of other serum enzymes (06/09/23) Subjective Subjective Patient seen at bedside this afternoon after her thoracentesis. also at bedside. Patient sitting up in bed, conversing normally, no acute distress. States she feels significantly better from a chest pain standpoint after the thoracentesis. Denies any shortness of breath. Denies any cough or sputum production. Denies any fevers or chills. No other acute concerns currently. Objective Data Objective Data Vital Signs: Vital Signs Temp Pulse Resp BP Pulse Ox O2 Del Method O2 Flow Rate 98.6 F 67 16 135/70 H 95 Room Air 2 06/10/23 13:34 06/10/23 13:34 06/10/23 13:34 06/10/23 13:34 06/10/23 13:34 06/10/23 13:49 06/10/23 12:08 Oxygen Flow Rate (L/min) [8] 2 Oxygen Flow Rate (L/min) [7] 2 Oxygen Flow Rate (L/min) [6] 2 Oxygen Flow Rate (L/min) [5] 2 Oxygen Flow Rate (L/min) [4] 2 Oxygen Flow Rate (L/min) [3] 2 Oxygen Flow Rate (L/min) [2] 2 Oxygen Flow Rate (L/min) [1 ( 2 Initial Baseline)] Oxygen Flow Rate (L/min) 2 Oxygen Delivery Method [8] Nasal Cannula Oxygen Delivery Method [7] Nasal Cannula Oxygen Delivery Method [6] Nasal Cannula Oxygen Delivery Method [5] Nasal Cannula Oxygen Delivery Method [4] Nasal Cannula Oxygen Delivery Method [3] Nasal Cannula Oxygen Delivery Method [2] Nasal Cannula Oxygen Delivery Method [1 ( Nasal Cannula Initial Baseline)] Oxygen Delivery Method Room Air Weight: 93.7 kg Body Mass Index (BMI) 32.3 Intake & Output: Intake and Output for Last 24 Hours 06/08/23 06/09/23 06/10/23 23:59 23:59 23:59 Intake Total 2580 / 2580 1877.50 / 1877.50 Output Total 630 / 630 Balance 2580 / 2580 1247.50 / 1247.50 Lab / Micro Data 06/10/23 07:22 06/10/23 07:22 Labs: Laboratory Results - last 24 hr 06/10/23 07:22: WBC 11.5 H, RBC 3.48 L, Hgb 10.8 L, Hct 33.1 L, MCV 95.1, MCH 31.0, MCHC 32.6, RDW Std Deviation 48.1 H, RDW Coeff of Sandip 13.8, Plt Count 387, MPV 9.6, Immature Gran % (Auto) 0.800, Neut % (Auto) 72.8 H, Lymph % (Auto) 12.6 L, [place] % (Auto) 9.7, Eos % (Auto) 3.7, Baso % (Auto) 0.4, Absolute Neuts (auto) 8.4 H, Absolute Lymphs (auto) 1.44, Nucleated RBC % 0, Sodium 138, Potassium 3.7, Chloride 105, Carbon Dioxide 27.0, Anion Gap 6, BUN 8, Creatinine 0.64, Estim Creat Clear Calc 96.58, Est GFR (MDRD) Af Amer 123, Est GFR (MDRD) Non-Af 102, BUN/Creatinine Ratio 12.5, Glucose 111 H, Calcium 8.4 L, Total Bilirubin 0.60, AST 27, ALT 62 H, Alkaline Phosphatase 178 H, Lactate Dehydrogenase 179, Total Protein 6.3 L, Albumin 2.3 L, Globulin 4.0, Albumin/Globulin Ratio 0.6 L 06/10/23 09:00: MRSA (PCR) Negative 06/10/23 12:10: Fluid Source THORACENTESIS, Fluid Color RED, Fluid Appearance CLOUDY, Fluid WBC 10.840, Fluid RBC 0.035, Fluid Tot Cell Count 11.338 H, Fld Polynuclear WBCs # 2.587, Fld Polynuclear WBCs % 47.7, Fluid Mononuclear WBCs 2.833, Fld Mononuclear WBCs % 52.3, Fluid Neutrophils 59, Fluid Lymphocytes 26, Fluid Monocytes 1, Fluid Other Cells 14, Fl Pathologist Comment May follow, Fluid Glucose 99 H, Fluid Total Protein 4.1, Fluid LDH 534, Fluid Comment 2 SEE COMMENT Micro: Microbiology 06/10/23 12:10 Fluid - Thoracentesis Fluid Gram Stain - Final 06/09/23 16:34 Urine, Random Legionella Antigen - Final 06/09/23 16:34 Urine, Random Streptococcus pneumoniae Antigen (M - Final Radiography Diagnostic Testing: Radiology Impression Abdomen/Pelvis CT 06/09/23 15:12 IMPRESSION: No acute findings in the abdomen or pelvis. Left basilar pleural effusion with consolidation, atelectatic versus infectious. Electronically Signed: Shane Flor MD at 18:16 EDT , Chest CTA 06/09/23 15:36 IMPRESSION: Normal CTA chest examination, without a demonstrated pulmonary embolism or arterial dissection. Loculated left pleural effusion with left lower lobe consolidation, atelectatic versus infectious. Electronically Signed: Shane Flor MD at 18:23 EDT , Thoracentesis Ultrasound 06/09/23 21:18 IMPRESSION: Ultrasound-guided left thoracentesis. Electronically Signed: Juventino Leyva MD at 12:56 EDT , Chest X-Ray 06/10/23 12:25 IMPRESSION: Status post left thoracentesis. No evidence of pneumothorax. Minimal residual left pleural-parenchymal changes are seen. Electronically Signed: Juventino Leyva MD at 12:58 EDT , Physical Exam Const alert, oriented x3 and no apparent distress Constitutional Narrative: Pleasant middle-age female, obese, sitting comfortably in bed, conversing no rmally, no acute distress. General Appearance: cooperative and comfortable HEENT normocephalic, head/scalp atraumatic, hearing grossly normal bilaterally, nasal mucous membranes and turbinates normal and moist oral mucous membranes Eyes PERRL, EOMs intact bilaterally and conjunctivae normal Neck full ROM, no lymphadenopathy and supple Lymph Lymphatic: no lymphadenopathy noted Chest inspection of chest normal Chest Narrative: Mild tenderness to palpation in left lateral rib area. Resp normal respiratory effort, normal air movement and no use of accessory muscles Resp Narrative: Mild decreased breath sounds at left lung base, no wheezes or crackles noted. Satting well on room air, no increased work of breathing noted. Cardio regular rate, regular rhythm, no murmurs and peripheral pulses 2+ throughout GI normal to inspection, nondistended, normoactive bowel sounds, soft to palpation, non-tender and non-distended Back/Spine normal ROM Extremity normal to inspection, full ROM and no pedal edema Skin no rashes or lesions noted Psych mental status grossly normal Assessment & Plan Assessment/Plan (1) Parapneumonic effusion: PLAN: Plan Patient is a 57-year-old female with history of postmenopausal symptoms and recent appendectomy who presented to [facility] ED on 06/09/2023 with severe left-sided chest and lateral rib pain. 1. Community-acquired pneumonia with unknown organism, suspected parapneumonic effusion CTA chest on admit showed an apparent loculated left lateral effusion with left lower lobe consolidation, atelectatic versus infectious. WBC count of 14.8 on admit, afebrile, vitals otherwise normal. Suspect that decreased respiratory excursion after appendectomy was main risk factor for developing pneumonia. S/p ultrasound-guided thoracentesis with IR on 06/10 with approximately 530 mL of blood-tinged fluid drained. Repeat chest x-ray post paracentesis showed minimal residual pleural-parenchymal changes at left lung base, no evidence of pneumothorax. Started on IV vancomycin and Zosyn in the ED. Urine antigens negative. ? Continue vancomycin and Zosyn for now. Follow-up thoracentesis fluid studies, narrow antibiotics as able. Blood cultures pending. On my read of CTA chest, seems less likely a true loculated effusion and more consistent with a simple left pleural effusion with consolidation versus atelectasis in left lower lobe. No need for chest tube at this time. Monitor CBC daily. Okay to continue IV morphine and p.o. oxycodone as needed for pain control for now. 2. Recent perforated appendicitis s/p laparoscopic appendectomy Recently hospitalized from 05/29 to 06/03 for appendicitis. S/p laparoscopic appendectomy with general surgery on 05/30. Postoperative cultures grew E. coli, Klebsiella, Streptococcus sanguinis and Bacteroides. Treated with IV antibiotics inpatient, discharged on Augmentin with plan to complete 7-day course. Completed course at home. CT abdomen pelvis with contrast on admission showed no acute findings in the abdomen or pelvis. ? Stable. Monitor. 3. Elevated transaminases ? Mildly elevated on admission. AST 50, ALT 72, alk phos 186. Unclear etiology but most likely secondary to postoperative changes after recent appendectomy. Acute hepatitis panel, CMV and EBV antibodies pending. Monitor. Chronic medical conditions: ? Postmenopausal symptoms: Continue home estradiol. DVT prophylaxis: Low risk, ambulate CODE STATUS: Full code, verified Expected disposition: Home, 1 to 2 days Total clinical time spent by myself addressing the patient's medical issues, reviewing all the data, and collaborating with patient's care team: 35 minutes. Charges/Coding Visit Charges Inpatient E&M: 30656 Subs Hosp L2
[2023-06-10] MEDS: 0.9% Normal Saline (1000mL) 1,000 ML 75 ML IV (23:58)
[2023-06-11] VITALS (8 sets, daily range): BP systolic 124–151; BP diastolic 66–81; PULSE 73–80; RESP 16–18; TEMP 36.4–37.1; O2SAT 89–95
[2023-06-11] MEDS: oxyCODONE 5 MG Tablet PO ×3 (02:55→23:16)
[2023-06-11] MEDS: Acetaminophen 325 MG Tablet 650 MG PO ×3 (02:55→23:17)
[2023-06-11] MEDS: Piperacil/Tazobactam 3.375 GM in 0.9% Normal Saline (50mL MB+) 50 ML IV ×3 (05:10→22:40)
[2023-06-11 07:06] LABS: Hematocrit 33.1 % (37-47); Hemoglobin 10.7 g/dL (12.0-15.0); Mean Corp Hgb Conc 32.3 g/dL (32-36); Mean Corpuscular Volume 95.9 fL (81-99); Mean Platelet Vol. 9.6 fl (6.2-12.0); Platelet Count 360 K/mm3 (150-450); RBC Distribution Width CV 13.7 % (11.6-14.6); RBC Distribution Width SD 48.6 fl (35.1-43.9); Red Blood Count 3.45 M/mm3 (4.2-5.4); White Blood Count 9.7 K/mm3 (4.4-11.0)
[2023-06-11 07:37] LABS: Anion Gap 4 (5-15); BUN 11 mg/dL (7-18); BUN/Creat Ratio 7.1 RATIO (10-20); Calcium,Total 8.6 mg/dL (8.5-10.1); Chloride 108 mmol/L (98-107); Creatinine, Serum 1.56 mg/dL (0.55-1.02); EST Glomerular Filtration Rate 37 mL/min (>60); Est Glom Filt Rate - Afr Amer 44 mL/min (>60); Estimated Creatinine Clearance 39.62 ml/min; Glucose 113 mg/dL (74-106); Potassium 3.7 mmol/L (3.5-5.1); Sodium Level 139 mmol/L (136-145)
[2023-06-11] MEDS: Morphine 2 MG/ML Syringe IV (10:11)
[2023-06-11] MEDS: Ondansetron 4 MG/2 ML Vial IV (10:12)
[2023-06-11 10:17] LABS: Vancomycin, Trough Level 20.1 ug/mL (5.0-15.0)
--- NOTE | 2023-06-11 10:18 | EKG12_ITS ---
Test Reason : CP Blood Pressure : / mmHG Vent. Rate : 073 BPM Atrial Rate : 073 BPM P-R Int : 080 ms QRS Dur : 086 ms QT Int : 376 ms P-R-T Axes : -05 -02 039 degrees QTc Int : 414 ms Sinus rhythm with short MO Otherwise normal ECG When compared with ECG of 09-JUN-2023 15:57, MANUAL COMPARISON REQUIRED, DATA IS UNCONFIRMED Confirmed by SRUTHI QUIROZ, CALIXTO ([id number]), technical writer and editor FANNY VARGHESE ([id number]) on 06/12/2023 1:40:59 PM Referred By: Confirmed By:CALIXTO NEGRO MD
--- NOTE | 2023-06-11 10:35 | PCM.RX.CS ---
Consult Antibiotic Management Pharmacy has been consulted to manage selected antiobiotic: Vancomycin Type of Intervention Type of Consult: Follow-up Suspected Infection Suspected Infection: Pneumonia Prior Doses of Antibiotics Prior Doses of Antibiotics Received/Current Regimen: Loading dose of 1500mg x 1 followed by 1500mg iv q12h. Labs Labs: Sodium 139 mmol/L (136-145) 06/11/23 06:40 Potassium 3.7 mmol/L (3.5-5.1) 06/11/23 06:40 Chloride 108 mmol/L (98-107) H 06/11/23 06:40 Carbon Dioxide 27.0 mmol/L (21.0-32.0) 06/11/23 06:40 Anion Gap 4 (5-15) L 06/11/23 06:40 BUN 11 mg/dL (7-18) 06/11/23 06:40 Creatinine 1.56 mg/dL (0.55-1.02) H 06/11/23 06:40 Est GFR (MDRD) Af Amer 44 mL/min (>60) L 06/11/23 06:40 Est GFR (MDRD) Non-Af 37 mL/min (>60) L 06/11/23 06:40 BUN/Creatinine Ratio 7.1 RATIO (10-20) L 06/11/23 06:40 Glucose 113 mg/dL (74-106) H 06/11/23 06:40 Vancomycin Trough 20.1 ug/mL (5.0-15.0) H 06/11/23 09:35 Microbiology Microbiology: Microbiology 06/09/23 16:34 Urine, Clean Catch Urine Culture - Final Culture exhibits no growth. 06/10/23 12:10 Fluid - Thoracentesis Fluid Gram Stain - Final 06/09/23 16:34 Urine, Random Legionella Antigen - Final 06/09/23 16:34 Urine, Random Streptococcus pneumoniae Antigen (M - Final Dosing Weight Weight used for dosin kg Estimated Creatinine Clearance Estimated Creatinine Clearance: 40ml/min Goal Trough Goal Trough: 15-20 mcg/mL Pharmacy Plan for Drug Dosing Pharmacy Plan for Drug Dosing: Trough today slightly elevated at 20.1. Renal function decrease of Cr 0.64 to 1.56 today. Recommend decreasing dose to 1250mg iv q12h with new trough before 4th dose. Pharmacy Service will continue to monitor and adjust dosing as required. Follow-Up Labs Follow-Up Labs: Trough: Vancomycin (06.13.23 @0230)
[2023-06-11] MEDS: 0.9% Normal Saline (1000mL) 1,000 ML 75 ML IV (12:28)
[2023-06-11 14:09] LABS: CMV Acute Antibody IgM < 30.0 AU/mL (0.0-29.9); EBV Acute VCA IgM < 36.0 U/mL (0.0-35.9); HEPATITIS B SURFACE AG Negative (Negative); Hep C Antibodies Non Reactive (Non Reactive); Hepatitis A IgM Antibody Negative (Negative); Hepatitis B Core AB IgM Negative (Negative)
[2023-06-11] MEDS: Vancomycin HCl 1,250 MG in 0.9% Normal Saline (250mL Bag) 250 ML 167 MG IV (15:08)
[2023-06-11 15:17] LABS: Pathologist Comment/Body Fluid Reviewed
--- NOTE | 2023-06-11 17:24 | PCM.PN.HOSP ---
Reason for Visit Reason for Visit: Diagnoses Pneumonia, unspecified organism (06/09/23) Pleural effusion in other conditions classified elsewhere (06/09/23) Abnormal levels of other serum enzymes (06/09/23) Subjective Subjective Patient seen this morning at bedside. Per nursing staff, patient was ambulating around the floor this morning and apparently had an episode of vomiting at that time. On my interview, patient was sitting comfortably in bedside chair. She did note that she felt nauseous at that time with activity and vomited, but she feels significantly better now. She does continue to have left-sided chest and lateral rib pain, slightly improved from yesterday. She denies any fevers or chills. Denies any shortness of breath and is satting well on room air. Denies any abdominal pain or discomfort. No other acute concerns currently. Objective Data Objective Data Vital Signs: Vital Signs Temp Pulse Resp BP Pulse Ox O2 Del Method O2 Flow Rate 97.7 F L 80 18 147/74 H 92 Room Air 2 06/11/23 16:56 06/11/23 16:56 06/11/23 16:56 06/11/23 16:56 06/11/23 16:56 06/11/23 16:56 06/11/23 07:04 Oxygen Flow Rate (L/min) [8] 2 Oxygen Flow Rate (L/min) [7] 2 Oxygen Flow Rate (L/min) [6] 2 Oxygen Flow Rate (L/min) [5] 2 Oxygen Flow Rate (L/min) [4] 2 Oxygen Flow Rate (L/min) [3] 2 Oxygen Flow Rate (L/min) [2] 2 Oxygen Flow Rate (L/min) [1 ( 2 Initial Baseline)] Oxygen Flow Rate (L/min) 2 Oxygen Delivery Method [8] Nasal Cannula Oxygen Delivery Method [7] Nasal Cannula Oxygen Delivery Method [6] Nasal Cannula Oxygen Delivery Method [5] Nasal Cannula Oxygen Delivery Method [4] Nasal Cannula Oxygen Delivery Method [3] Nasal Cannula Oxygen Delivery Method [2] Nasal Cannula Oxygen Delivery Method [1 ( Nasal Cannula Initial Baseline)] Oxygen Delivery Method Room Air Weight: 93.7 kg Body Mass Index (BMI) 32.3 Intake & Output: Intake and Output for Last 24 Hours 06/09/23 06/10/23 06/11/23 23:59 23:59 23:59 Intake Total 2580 / 2580 2457.50 / 2457.50 2072.5 / 2072.5 Output Total 630 / 630 200 / 200 Balance 2580 / 2580 1827.50 / 1827.50 1872.5 / 1872.5 Lab / Micro Data 06/11/23 06:40 06/11/23 06:40 Labs: Laboratory Results - last 24 hr 06/10/23 07:22: CMV IgM Ab < 30.0, EBV Capsid Ag IgM Ab < 36.0, Hepatitis A IgM Ab Negative, Hep Bs Antigen Negative, Hep B Core IgM Ab Negative, Hepatitis C Ab (EIA) Non Reactive, Hep C Ab Comment Comment 06/10/23 12:10: Fl Pathologist Comment Reviewed 06/11/23 06:40: WBC 9.7, RBC 3.45 L, Hgb 10.7 L, Hct 33.1 L, MCV 95.9, MCH 31.0, MCHC 32.3, RDW Std Deviation 48.6 H, RDW Coeff of Sandip 13.7, Plt Count 360, MPV 9.6, Sodium 139, Potassium 3.7, Chloride 108 H, Carbon Dioxide 27.0, Anion Gap 4 L, BUN 11, Creatinine 1.56 H, Estim Creat Clear Calc 39.62, Est GFR (MDRD) Af Amer 44 L, Est GFR (MDRD) Non-Af 37 L, BUN/Creatinine Ratio 7.1 L, Glucose 113 H, Calcium 8.6 06/11/23 09:35: Vancomycin Trough 20.1 H Micro: Microbiology 06/09/23 16:34 Urine, Clean Catch Urine Culture - Final Culture exhibits no growth. 06/10/23 12:10 Fluid - Thoracentesis Fluid Gram Stain - Final 06/09/23 16:34 Urine, Random Legionella Antigen - Final 06/09/23 16:34 Urine, Random Streptococcus pneumoniae Antigen (M - Final Physical Exam Const alert, oriented x3 and no apparent distress Constitutional Narrative: Pleasant middle-age female, obese, sitting comfortably in bedside chair, conversing normally, no acute distress. General Appearance: cooperative and comfortable HEENT normocephalic, head/scalp atraumatic, hearing grossly normal bilaterally, nasal mucous membranes and turbinates normal and moist oral mucous membranes Eyes PERRL, EOMs intact bilaterally and conjunctivae normal Neck full ROM, no lymphadenopathy and supple Lymph Lymphatic: no lymphadenopathy noted Chest inspection of chest normal Chest Narrative: Mild tenderness to palpation in left lateral rib area. Resp normal respiratory effort, normal air movement and no use of accessory muscles Resp Narrative: Mild decreased breath sounds at left lung base, no wheezes or crackles noted. Satting well on room air, no increased work of breathing noted. Cardio regular rate, regular rhythm, no murmurs and peripheral pulses 2+ throughout GI normal to inspection, nondistended, normoactive bowel sounds, soft to palpation, non-tender and non-distended Back/Spine normal ROM Extremity normal to inspection, full ROM and no pedal edema Skin no rashes or lesions noted Psych mental status grossly normal Assessment & Plan Assessment/Plan (1) Parapneumonic effusion: PLAN: Plan Patient is a 57-year-old female with history of postmenopausal symptoms and recent appendectomy who presented to [facility] ED on 06/09/2023 with severe left-sided chest and lateral rib pain. 1. Community-acquired pneumonia with unknown organism, suspected parapneumonic effusion CTA chest on admit showed an apparent loculated left lateral effusion with left lower lobe consolidation, atelectatic versus infectious. WBC count of 14.8 on admit, afebrile, vitals otherwise normal. Suspect that decreased respiratory excursion after appendectomy was main risk factor for developing pneumonia. S/p ultrasound-guided thoracentesis with IR on 06/10 with approximately 530 mL of blood-tinged fluid drained. Repeat chest x-ray post paracentesis showed minimal residual pleural-parenchymal changes at left lung base, no evidence of pneumothorax. Started on IV vancomycin and Zosyn in the ED. Urine antigens negative. ? Fluid studies from thoracentesis are most consistent with parapneumonic effusion given high total cell count with predominant WBCs, elevated protein and LDH that both meet lights criteria for an exudative effusion. Fluid cultures with no growth at this time. Continue vancomycin and Zosyn for now. WBC count has down trended appropriately and is now normal range. If patient remains stable overnight, will plan to de-escalate to p.o. antibiotics in preparation for likely discharge home tomorrow. Okay to continue IV morphine and p.o. oxycodone as needed for pain control for now. 2. Recent perforated appendicitis s/p laparoscopic appendectomy Recently hospitalized from 05/29 to 06/03 for appendicitis. S/p laparoscopic appendectomy with general surgery on 05/30. Postoperative cultures grew E. coli, Klebsiella, Streptococcus sanguinis and Bacteroides. Treated with IV antibiotics inpatient, discharged on Augmentin with plan to complete 7-day course. Completed course at home. CT abdomen pelvis with contrast on admission showed no acute findings in the abdomen or pelvis. ? Stable. Monitor. 3. Elevated transaminases ? Mildly elevated on admission. AST 50, ALT 72, alk phos 186. Unclear etiology but most likely secondary to postoperative changes after recent appendectomy. Acute hepatitis panel, CMV and EBV antibodies all negative. Monitor. 4. RAFAL Creatinine 1.56 on 06/11, previously was at her baseline of 0.6-0.7 on 06/09 through 06/10. High suspicion is that this is contrast-induced nephropathy as she had a CTA chest and CT abdomen pelvis with IV contrast done on 06/09. Has had good urine output throughout. ? Monitor BMP tomorrow. If creatinine is improving, will be okay for discharge home tomorrow and would recommend repeat BMP 5 to 7 days post discharge to ensure that kidney function has normalized. Chronic medical conditions: ? Postmenopausal symptoms: Continue home estradiol. DVT prophylaxis: Low risk, ambulate CODE STATUS: Full code, verified Expected disposition: Home, 1 to 2 days Total clinical time spent by myself addressing the patient's medical issues, reviewing all the data, and collaborating with patient's care team: 35 minutes. Charges/Coding Visit Charges Inpatient E&M: 94572 Subs Hosp L2
[2023-06-11] MEDS: MELATONIN 3 MG TABLET PO (23:16)
[2023-06-12] VITALS (8 sets, daily range): BP systolic 140–156; BP diastolic 67–85; PULSE 70–85; RESP 16–18; TEMP 36.3–36.9; O2SAT 84–99
[2023-06-12] MEDS: 0.9% Normal Saline (1000mL) 1,000 ML 75 ML IV ×2 (01:28→22:36)
[2023-06-12] MEDS: Vancomycin HCl 1,250 MG in 0.9% Normal Saline (250mL Bag) 250 ML 167 MG IV (03:19)
[2023-06-12] MEDS: Piperacil/Tazobactam 3.375 GM in 0.9% Normal Saline (50mL MB+) 50 ML IV (05:09)
[2023-06-12 06:13] LABS: Hematocrit 31.6 % (37-47); Hemoglobin 10.2 g/dL (12.0-15.0); Mean Corp Hgb Conc 32.3 g/dL (32-36); Mean Corpuscular Hgb 30.9 pg (27.0-32.0); Mean Corpuscular Volume 95.8 fL (81-99); Mean Platelet Vol. 9.7 fl (6.2-12.0); Platelet Count 367 K/mm3 (150-450); RBC Distribution Width CV 13.6 % (11.6-14.6); RBC Distribution Width SD 48.4 fl (35.1-43.9); White Blood Count 9.2 K/mm3 (4.4-11.0)
[2023-06-12 06:56] LABS: Anion Gap 6 (5-15); BUN 9 mg/dL (7-18); BUN/Creat Ratio 5.4 RATIO (10-20); Calcium,Total 8.5 mg/dL (8.5-10.1); Chloride 108 mmol/L (98-107); Creatinine, Serum 1.66 mg/dL (0.55-1.02); EST Glomerular Filtration Rate 34 mL/min (>60); Est Glom Filt Rate - Afr Amer 41 mL/min (>60); Estimated Creatinine Clearance 37.24 ml/min; Glucose 107 mg/dL (74-106); Potassium 3.6 mmol/L (3.5-5.1); Sodium Level 140 mmol/L (136-145)
[2023-06-12] MEDS: Estradiol 1 MG Tablet PO (09:31)
[2023-06-12] MEDS: Doxycycline 100 MG CAPSULE PO ×2 (10:59→21:49)
[2023-06-12 11:20] LABS: Urine Sodium 84 mmol/L (Not Establ.)
[2023-06-12] MEDS: Ondansetron 4 MG/2 ML Vial IV (12:14)
--- NOTE | 2023-06-12 12:15 | CASEMGMT ---
KATIUSKA GARLAND updated that patient will need home oxygen at discharge. Joshua recieved. KATIUSKA GARLAND in to discuss preferences for home oxygen. Patient prefers [facility]. Patient statest she does not have pulse ox at home, KATIUSKA GARLAND provided pulse ox to patient. Patient denied further needs at discharge. Patient has appt to establish with PCP next week. Patient had no further questions or concerns. KATIUSKA GARLAND sent referral to [facility] via [facility]port and arranged for delivery to patient's room.
--- NOTE | 2023-06-12 14:38 | RAD_ITS ---
STUDY: X-RAY CHEST REASON FOR EXAM: Female, 57 years old. Hypoxia. TECHNIQUE: Single frontal view of the chest. COMPARISON: 06/10/23 FINDINGS: Cardiomegaly, aortic tortuosity, prominent central pulmonary arteries, mild diffuse interstitial prominence, left greater than right and left pleural effusion which is increased in size since the prior study. No acute or active cardiopulmonary disease. No abnormality of the visualized soft tissue structures of the upper abdomen. RAD/Chest 1 View (Portable) IMPRESSION: Stable chest except for increased left effusion. No acute or emergent finding. Electronically Signed: Arik Hampton MD at 14:53 EDT ,
[2023-06-12 15:26] LABS: Anion Gap 5 (5-15); BUN 9 mg/dL (7-18); BUN/Creat Ratio 5.3 RATIO (10-20); Calcium,Total 8.9 mg/dL (8.5-10.1); Chloride 105 mmol/L (98-107); EST Glomerular Filtration Rate 33 mL/min (>60); Est Glom Filt Rate - Afr Amer 40 mL/min (>60); Estimated Creatinine Clearance 36.36 ml/min; Glucose 127 mg/dL (74-106); Sodium Level 137 mmol/L (136-145)
--- NOTE | 2023-06-12 15:38 | PCM.PN.HOSP ---
Reason for Visit Reason for Visit: Diagnoses Pneumonia, unspecified organism (06/09/23) Pleural effusion in other conditions classified elsewhere (06/09/23) Abnormal levels of other serum enzymes (06/09/23) Subjective Subjective Patient seen at bedside this morning. Sitting comfortably in bedside chair, conversing normally, no acute distress. Patient does appear fatigued this morning. States that she continues to have left-sided chest pain and mild shortness of breath. Oxygen saturations have been in the low 90s on 2 L nasal cannula and dropped with exertion. Patient states that she has not been able to breathe very deeply due to chest pain. She denies any cough or sputum production. She denies any abdominal pain or discomfort. Denies any fevers or chills. Does have intermittent nausea, no episodes of vomiting since yesterday. No other acute concerns this morning. Objective Data Objective Data Vital Signs: Vital Signs Temp Pulse Resp BP Pulse Ox O2 Del Method O2 Flow Rate 98.1 F 73 18 140/67 H 99 Nasal Cannula 2 06/12/23 14:31 06/12/23 14:31 06/12/23 14:31 06/12/23 14:31 06/12/23 14:31 06/12/23 14:31 06/12/23 14:31 Oxygen Flow Rate (L/min) [8] 2 Oxygen Flow Rate (L/min) [7] 2 Oxygen Flow Rate (L/min) [6] 2 Oxygen Flow Rate (L/min) [5] 2 Oxygen Flow Rate (L/min) [4] 2 Oxygen Flow Rate (L/min) [3] 2 Oxygen Flow Rate (L/min) [2] 2 Oxygen Flow Rate (L/min) [1 ( 2 Initial Baseline)] Oxygen Flow Rate (L/min) [ 2 AMBULATING with Oxygen #1] Oxygen Flow Rate (L/min) [ 0 AMBULATING on Room Air] Oxygen Flow Rate (L/min) [At 0 REST on Room Air] Oxygen Flow Rate (L/min) 2 Oxygen Delivery Method [8] Nasal Cannula Oxygen Delivery Method [7] Nasal Cannula Oxygen Delivery Method [6] Nasal Cannula Oxygen Delivery Method [5] Nasal Cannula Oxygen Delivery Method [4] Nasal Cannula Oxygen Delivery Method [3] Nasal Cannula Oxygen Delivery Method [2] Nasal Cannula Oxygen Delivery Method [1 ( Nasal Cannula Initial Baseline)] Oxygen Delivery Method Nasal Cannula Weight: 93.7 kg Body Mass Index (BMI) 32.3 Intake & Output: Intake and Output for Last 24 Hours 06/10/23 06/11/23 06/12/23 23:59 23:59 23:59 Intake Total 2457.50 / 2457.50 2672.5 / 2672.5 / Output Total 630 / 630 200 / 200 Balance 1827.50 / 1827.50 2472.5 / 2472.5 Lab / Micro Data 06/12/23 05:03 06/12/23 14:40 Labs: Laboratory Results - last 24 hr 06/12/23 05:03: WBC 9.2, RBC 3.30 L, Hgb 10.2 L, Hct 31.6 L, MCV 95.8, MCH 30.9, MCHC 32.3, RDW Std Deviation 48.4 H, RDW Coeff of Sandip 13.6, Plt Count 367, MPV 9.7, Sodium 140, Potassium 3.6, Chloride 108 H, Carbon Dioxide 26.0, Anion Gap 6, BUN 9, Creatinine 1.66 H, Estim Creat Clear Calc 37.24, Est GFR (MDRD) Af Amer 41 L, Est GFR (MDRD) Non-Af 34 L, BUN/Creatinine Ratio 5.4 L, Glucose 107 H, Calcium 8.5 06/12/23 10:10: Ur Random Sodium 84, Urine Creatinine 48.30 06/12/23 14:40: Sodium 137, Potassium 4.0, Chloride 105, Carbon Dioxide 27.0, Anion Gap 5, BUN 9, Creatinine 1.70 H, Estim Creat Clear Calc 36.36, Est GFR (MDRD) Af Amer 40 L, Est GFR (MDRD) Non-Af 33 L, BUN/Creatinine Ratio 5.3 L, Glucose 127 H, Calcium 8.9 Micro: Microbiology 06/09/23 16:50 Blood Culture (Wb) - Right Hand Blood Culture - Preliminary No growth in 48 hours. 06/10/23 12:10 Fluid - Thoracentesis Fluid Gram Stain - Final 06/10/23 12:10 Fluid - Thoracentesis Fluid Anaerobic Culture - Preliminary No growth in 48 hours. 06/09/23 16:34 Urine, Clean Catch Urine Culture - Final Culture exhibits no growth. 10/16/23 16:34 Urine, Random Legionella Antigen - Final 06/09/23 16:34 Urine, Random Streptococcus pneumoniae Antigen (M - Final Radiography Diagnostic Testing: Radiology Impression Chest X-Ray 06/12/23 14:38 IMPRESSION: Stable chest except for increased left effusion. No acute or emergent finding. Electronically Signed: Arik Hampton MD at 14:53 EDT , Physical Exam Const alert, oriented x3 and no apparent distress Constitutional Narrative: Pleasant middle-age female, obese, sitting comfortably in bedside chair, fatigued appearing but otherwise conversing normally, no acute distress. General Appearance: cooperative and comfortable HEENT normocephalic, head/scalp atraumatic, hearing grossly normal bilaterally, nasal mucous membranes and turbinates normal and moist oral mucous membranes Eyes PERRL, EOMs intact bilaterally and conjunctivae normal Neck full ROM, no lymphadenopathy and supple Lymph Lymphatic: no lymphadenopathy noted Chest inspection of chest normal Chest Narrative: Mild tenderness to palpation in left lateral rib area. Resp normal respiratory effort, normal air movement and no use of accessory muscles Resp Narrative: Mild decreased breath sounds at left lung base, no wheezes or crackles noted. Satting in low 90s on 2 L nasal cannula, no increased work of breathing noted. Cardio regular rate, regular rhythm, no murmurs and peripheral pulses 2+ throughout GI normal to inspection, nondistended, normoactive bowel sounds, soft to palpation, non-tender and non-distended Back/Spine normal ROM Extremity normal to inspection, full ROM and no pedal edema Skin no rashes or lesions noted Psych mental status grossly normal Assessment & Plan Assessment/Plan (1) Parapneumonic effusion: PLAN: Plan Patient is a 57-year-old female with history of postmenopausal symptoms and recent appendectomy who presented to [facility] ED on 06/09/2023 with severe left-sided chest and lateral rib pain. 1. Community-acquired pneumonia with unknown organism, suspected parapneumonic effusion, hypoxia CTA chest on admit showed an apparent loculated left lateral effusion with left lower lobe consolidation, atelectatic versus infectious. WBC count of 14.8 on admit, afebrile, vitals otherwise normal. Suspect that decreased respiratory excursion after appendectomy was main risk factor for developing pneumonia. S/p ultrasound-guided thoracentesis with IR on 06/10 with approximately 530 mL of blood-tinged fluid drained. Repeat chest x-ray post paracentesis showed minimal residual pleural-parenchymal changes at left lung base, no evidence of pneumothorax. Urine antigens negative. Fluid studies from thoracentesis are most consistent with parapneumonic effusion given high total cell count with predominant WBCs, elevated protein and LDH that both meet lights criteria for an exudative effusion. Fluid cultures with no growth at this time. ? Patient has now had persistent hypoxia with oxygen saturation drop below 88% on room air with ambulation. Satting in low to mid 90s on 2 L at rest. Has no underlying lung disease. Repeat chest x-ray on 06/12 shows stable chest finding except for increased size of left pleural effusion. Pulmonology consulted to assess if there is any need for change in management at this time. De-escalated to p.o. doxycycline today with plans for discharge, however we will plan to keep patient till tomorrow and reassess. Okay to continue p.o. doxycycline at this time. Continue p.o. oxycodone as needed for pain control. Case management consulted, planning for short-term home oxygen on discharge. 2. Recent perforated appendicitis s/p laparoscopic appendectomy Recently hospitalized from 05/29 to 06/03 for appendicitis. S/p laparoscopic appendectomy with general surgery on 05/30. Postoperative cultures grew E. coli, Klebsiella, Streptococcus sanguinis and Bacteroides. Treated with IV antibiotics inpatient, discharged on Augmentin with plan to complete 7-day course. Completed course at home. CT abdomen pelvis with contrast on admission showed no acute findings in the abdomen or pelvis. ? Stable. Monitor. 3. Elevated transaminases ? Mildly elevated on admission. AST 50, ALT 72, alk phos 186. Unclear etiology but most likely secondary to postoperative changes after recent appendectomy. Acute hepatitis panel, CMV and EBV antibodies all negative. Monitor. 4. RAFAL Creatinine 1.56 on 06/11, previously was at her baseline of 0.6-0.7 on 06/09 through 06/10. Has had good urine output throughout. Repeat creatinine 1.6 on morning of 06/12, then 1.7 on afternoon of 06/12. FeNa was 2.1%, consistent with intrinsic renal dysfunction. Most likely etiology would seem to be the heavy IV contrast load she got with CT studies on 06/09. Infection could also be contributing. ? Monitor BMP tomorrow morning. Hoping to see some small improvement prior to discharge, will monitor closely. Chronic medical conditions: ? Postmenopausal symptoms: Continue home estradiol. DVT prophylaxis: Low risk, ambulate CODE STATUS: Full code, verified Expected disposition: Home, 1 to 2 days Total clinical time spent by myself addressing the patient's medical issues, reviewing all the data, and collaborating with patient's care team: 35 minutes. Charges/Coding Visit Charges Inpatient E&M: 34322 Subs Hosp L2
[2023-06-13 02:34] LABS: Hematocrit 30.8 % (37-47); Hemoglobin 9.9 g/dL (12.0-15.0); Mean Corp Hgb Conc 32.1 g/dL (32-36); Mean Corpuscular Hgb 30.4 pg (27.0-32.0); Mean Corpuscular Volume 94.5 fL (81-99); Mean Platelet Vol. 8.9 fl (6.2-12.0); Platelet Count 395 K/mm3 (150-450); RBC Distribution Width CV 13.6 % (11.6-14.6); RBC Distribution Width SD 47.3 fl (35.1-43.9); Red Blood Count 3.26 M/mm3 (4.2-5.4)
[2023-06-13 02:59] LABS: Anion Gap 4 (5-15); BUN 9 mg/dL (7-18); BUN/Creat Ratio 5.9 RATIO (10-20); Calcium,Total 8.5 mg/dL (8.5-10.1); Chloride 106 mmol/L (98-107); Creatinine, Serum 1.53 mg/dL (0.55-1.02); EST Glomerular Filtration Rate 37 mL/min (>60); Est Glom Filt Rate - Afr Amer 45 mL/min (>60); Glucose 122 mg/dL (74-106); Potassium 3.7 mmol/L (3.5-5.1); Sodium Level 138 mmol/L (136-145)
[2023-06-13 03:02] LABS: Vancomycin, Trough Level 17.3 ug/mL (5.0-15.0)
[2023-06-13 03:45] VITALS: BP 150/83; PULSE 74; RESP 16; TEMP 36.9; O2SAT 92
[2023-06-13 07:38] VITALS: O2SAT 95
--- NOTE | 2023-06-13 08:38 | EX.PCM.CONCC ---
Assessment & Plan Assessment/Plan (1) Pleural effusion: PLAN: Plan RECOMMENDATIONS: 1. Transition to Levaquin to complete 7 days of therapy. 2. Wean supplemental oxygen to maintain saturations at or above 90%. 3. Perform walking oximetry study prior to consideration for discharge home. 4. Outpatient pulmonary follow-up in 2 weeks. 5. Recommend follow-up chest imaging in 6 to 8 weeks to document resolution of the pleural effusion. IMPRESSIONS: 1. Pleural effusion The patient initially presented to the hospital with some chest discomfort and radiographic evidence of a left lower lobe consolidation and associated effusion. The patient ultimately underwent a thoracentesis, which revealed an neutrophil predominant exudate, likely parapneumonic in etiology. Per traditional Light's criteria, if at least one of the following three is fulfilled, the fluid would be considered an exudate: 1. Pleural fluid protein/serum protein ratio greater than 0.5 2. Pleural fluid LDH/serum LDH ratio greater than 0.6 3. Pleural fluid LDH greater than two thirds the upper limits of the laboratories normal serum LDH Based upon my review of the patient's pleural fluid analysis, along with serum LDH and total protein levels, the pleural fluid would be considered exudative in nature. At this time, I recommend that the patient be continued on antibiotics, such as Levaquin, to complete 7 days of therapy. She should complete a walking oximetry study prior to consideration for discharge home. Continue supplemental oxygen to maintain saturations at or above 90%. I would recommend that she follow-up in the pulmonary medicine office in 2 weeks, at which time, orders for repeat chest imaging can be placed. Ideally, a repeat chest x-ray or CT scan should be completed in 6 to 8 weeks. This note was generated with [employer] dictation software. It may contain incorrect words, spelling, and punctuation that were not noted in checking the note before signing. HPI Consult Data Date of Consult: 06/13/23 HPI Narrative Reason for Consultation: Pleural effusion HPI Narrative: The patient is a 57-year-old female, with a history as outlined below, who presented to the emergency department on June 09 with reported chest discomfort under her left breast. The patient had undergone a laparoscopic appendectomy on May 30. She does not regularly utilize supplemental oxygen at her baseline. On presentation to the emergency department, the patient was noted to be afebrile and hemodynamically stable. She was maintaining appropriate oxygen saturations on room air. Initial laboratory evaluation revealed a white blood cell count of 15,000. Chemistry profile was unrevealing. Urine analysis was noncontributory. CTA chest showed no evidence for pulmonary embolism. However, there was evidence of a left lower lobe consolidation with associated effusion. CT abdomen/pelvis was unremarkable. The patient was ultimately placed on antimicrobials and admitted to the hospital. On June 09, the patient underwent an ultrasound-guided thoracentesis. 530 mL of blood-tinged fluid was removed from the left hemithorax. The pleural fluid itself was a neutrophil predominant exudate. [facility] Medical History Abdominal pain Home Medications estradiol 1 mg tablet (Estrace) 1 mg PO DAILY 06/09/23 [History Last Taken 06/07/23] Allergy/AdvReac Type Severity Reaction Status Date / Time erythromycin base AdvReac Upset Verified 06/09/23 14:56 Stomach Family History Other A-fib CVA (cerebral vascular accident) Cancer Congestive heart failure Crohn's disease Lung cancer Saddle pulmonary embolus Sarcoidosis Surgical History H/O dilation and curettage Hx of appendectomy Social History Smoking Status: Never smoker ROS ROS Narrative 10 systems were reviewed with pertinent positives as noted in the HPI above. Physical Exam Const alert and no apparent distress Constitutional Narrative: Sitting in bedside recliner. General Appearance: cooperative HEENT normocephalic and head/scalp atraumatic Eyes PERRL, EOMs intact bilaterally and conjunctivae normal Neck supple General: trachea midline Chest inspection of chest normal Resp normal respiratory effort Auscultation: diminished lung sounds left lower Cardio regular rate and regular rhythm GI normal to inspection, nondistended, normoactive bowel sounds Extremity no clubbing, cyanosis or edema Skin no rashes or lesions noted Neuro oriented x3, CN's II-XII intact bilaterally, moves all extremities and no focal motor deficits Psych cooperative and affect normal Lab / Micro Data 06/13/23 02:27 06/13/23 02:27 Labs: Laboratory Results - last 24 hr 06/12/23 10:10: Ur Random Sodium 84, Urine Creatinine 48.30 06/12/23 14:40: Sodium 137, Potassium 4.0, Chloride 105, Carbon Dioxide 27.0, Anion Gap 5, BUN 9, Creatinine 1.70 H, Estim Creat Clear Calc 36.36, Est GFR (MDRD) Af Amer 40 L, Est GFR (MDRD) Non-Af 33 L, BUN/Creatinine Ratio 5.3 L, Glucose 127 H, Calcium 8.9 06/13/23 02:27: WBC 10.0, RBC 3.26 L, Hgb 9.9 L, Hct 30.8 L, MCV 94.5, MCH 30.4, MCHC 32.1, RDW Std Deviation 47.3 H, RDW Coeff of Sandip 13.6, Plt Count 395, MPV 8.9, Sodium 138, Potassium 3.7, Chloride 106, Carbon Dioxide 28.0, Anion Gap 4 L, BUN 9, Creatinine 1.53 H, Estim Creat Clear Calc 40.40, Est GFR (MDRD) Af Amer 45 L, Est GFR (MDRD) Non-Af 37 L, BUN/Creatinine Ratio 5.9 L, Glucose 122 H, Calcium 8.5, Vancomycin Trough 17.3 H Micro: Microbiology 06/10/23 12:10 Fluid - Thoracentesis Fluid Gram Stain - Final 06/10/23 12:10 Fluid - Thoracentesis Fluid Body Fluid Culture - Final No growth aerobically. 06/10/23 12:10 Fluid - Thoracentesis Fluid Anaerobic Culture - Preliminary No growth in 48 hours. 06/09/23 16:50 Blood Culture (Wb) - Right Hand Blood Culture - Preliminary No growth in 48 hours. Radiology Impression Chest X-Ray 06/12/23 14:38 IMPRESSION: Stable chest except for increased left effusion. No acute or emergent finding. Electronically Signed: Arik Hampton MD at 14:53 EDT , Charges/Coding Visit Charges Inpatient E&M: 82658 Init Hosp L3
[2023-06-13 09:06] VITALS: O2SAT 83; O2SAT 89; O2SAT 90
[2023-06-13 09:07] VITALS: BP 142/71; PULSE 72; RESP 18; TEMP 36.6; O2SAT 96
[2023-06-13] MEDS: Doxycycline 100 MG CAPSULE PO (09:10)
[2023-06-13] MEDS: Estradiol 1 MG Tablet PO (09:10)
--- NOTE | 2023-06-13 12:21 | DCINST_ITS ---
Discharge Instructions Diet Discharge Diet: No restrictions Activity Discharge Activity: Return to Normal Activity Weight Bearing Status: Full weight bearing Follow Up Care Please Follow Up With: Magan Wells DO When: Around 2 weeks Test Results: Test results from this visit will be discussed in further detail at your follow- up appointment, if applicable. Pending Tests Upon Discharge: None Discharge Plan Admission Admit Date/Time: 06/09/23 19:13 Attending Provider: Rayray Ivory Primary Care Provider: Care Physician,No Primary Consulting Providers: Jonh Resendiz; Magan Wells Discharge Orders/Prescriptions Prescriptions: No Action estradiol [Estrace] 1 mg tablet 1 mg PO DAILY Referrals / Follow Up: Care Physician,No Primary [Primary Care Provider] -
--- NOTE | 2023-06-13 12:21 | PCM.DC ---
Discharge Instructions Diet Discharge Diet: No restrictions Activity Discharge Activity: Return to Normal Activity Weight Bearing Status: Full weight bearing Follow Up Care Please Follow Up With: Magan Wells DO When: Around 2 weeks Test Results: Test results from this visit will be discussed in further detail at your follow-up appointment, if applicable. Pending Tests Upon Discharge: None Discharge Plan Admission Admit Date/Time: 06/09/23 19:13 Primary Reason for Your Visit: Pneumonia Attending Provider: Rayray Ivory Primary Care Provider: Care Physician,Tasha Primary Consulting Providers: Jonh Resendiz; Magan Wells Instructions Additional Instructions / Restrictions: Please take 3 more days of Levaquin to complete a 7-day antibiotic course for your pneumonia. Follow-up with Dr. Wells in the office in about 2 weeks; his office will call to schedule an appointment for you. Discharge Orders/Prescriptions Prescriptions: New levofloxacin 750 mg tablet 750 mg PO DAILY 3 Days Qty: 3 0RF Continued estradiol [Estrace] 1 mg tablet 1 mg PO DAILY Referrals / Follow Up: Care Physician,No Primary [Primary Care Provider] - Disposition Disposition (needs filled in before D/C Order can be placed): Home, Self Care
--- NOTE | 2023-06-13 12:27 | PCM.DC.SUM ---
Providers Date of Admission: 06/09/23 Date of Discharge: 06/13/23 Primary Care Physician: Tasha Primary Care Phys Consultations 06/12/23 15:36 Consult: Electrical Test Engineer / Pulmonary Medicine Routine Consulting Provider: Magan Wells Reason for Consult: Likely parapneumonic effusion, concern for loculated effusion EMERGENT Consult: No MD Notified: Yes Date Notified: 06/12/23 Time Notified: 15:37 Method of Notification: Text Reason For Visit: PNEUMONIA WITH PARAPNEUMONIC EFFUSION Diagnosis Discharge Diagnosis (1) Pleural effusion: Status: Acute Code(s): J90 - Pleural effusion, not elsewhere classified Medications at Discharge Home Medications estradiol 1 mg tablet (Estrace) 1 mg PO DAILY 06/09/23 levofloxacin 750 mg tablet 750 mg PO DAILY 3 days #3 tabs 06/13/23 Hospital Course Operations None Procedures Thoracentesis and - (CT abdomen pelvis with IV contrast, CTA chest, chest x-ray x2) Summary of Care Provided Minutes Spent on Discharge: 35 Hospital Course: Patient is a 57-year-old female with history of postmenopausal symptoms and recent appendectomy who presented to [facility] ED on 06/09/2023 with severe left-sided chest and lateral rib pain. Multiple medical conditions addressed during hospitalization as noted below. Community-acquired pneumonia with unidentified organism, parapneumonic effusion, hypoxia: CTA chest on admit showed an apparent loculated left lateral effusion with left lower lobe consolidation, atelectatic versus infectious. WBC count of 14.8 on admit, afebrile, vitals otherwise normal. Suspect that decreased respiratory excursion after appendectomy was main risk factor for developing pneumonia. S/p ultrasound-guided thoracentesis with IR on 06/10 with approximately 530 mL of blood-tinged fluid drained. Repeat chest x-ray post paracentesis showed minimal residual pleural-parenchymal changes at left lung base, no evidence of pneumothorax. Urine antigens negative. Fluid studies from thoracentesis are most consistent with parapneumonic effusion given high total cell count with predominant WBCs, elevated protein and LDH that both meet lights criteria for an exudative effusion. Patient unfortunately had persistent hypoxia with oxygen desaturations with ambulation. Repeat chest x-ray on 06/12 showed return of small pleural effusion. Pulmonology evaluated, agree that patient had exudative effusion consistent with parapneumonic effusion, recommended discharging patient on p.o. Levaquin to complete a 7-day course of antibiotics total. Recommended that patient be discharged on supplemental oxygen to maintain saturations at or above 90%. Recommended that she follow-up in the pulmonary medicine office in 2 weeks and we will plan to have repeat chest x-ray or CT scan in 6 to 8 weeks. Patient discharged home on supplemental oxygen in stable condition. RAFAL: Baseline creatinine normal at 0.6-0.7. Creatinine was normal on admission, then worsened to creatinine 1.56 on 06/11. Remained at 1.6 and 1.7 through 06/12, then improved to 1.53 on 06/13. Patient had good urine output throughout hospitalization. FeNa was 2.1%, consistent with intrinsic renal dysfunction. Most likely etiology for RAFAL was the high IV contrast that she got with CT studies on 06/09, with infection as noted above possibly contributing. Recommend repeat BMP in 5 to 7 days after discharge to ensure patient has improved back to her baseline. Recent perforated appendicitis s/p laparoscopic appendectomy: Recently hospitalized from 05/29 to 06/03 for appendicitis. S/p laparoscopic appendectomy with general surgery on 05/30. Postoperative cultures grew E. coli, Klebsiella, Streptococcus sanguinis and Bacteroides. Treated with IV antibiotics inpatient, discharged on Augmentin with plan to complete 7-day course. Completed course at home. CT abdomen pelvis with contrast on admission showed no acute findings in the abdomen or pelvis. Stable during admission. Elevated transaminases: Mildly elevated on admission. AST 50, ALT 72, alk phos 186. Unclear etiology but most likely secondary to postoperative changes after recent appendectomy. Acute hepatitis panel, CMV and EBV antibodies all negative. Monitored. Discharge diagnoses: ? Community-acquired pneumonia with unidentified organism ? Parapneumonic effusion ? Hypoxia ? RAFAL, improving ? Elevated transaminases, improved Total clinical time spent by myself addressing the patient's discharge needs: 35 minutes. Physical Exam Const alert, oriented x3 and no apparent distress Constitutional Narrative: Pleasant middle-age female, obese, sitting comfortably in bedside chair, fatigued appearing but otherwise conversing normally, no acute distress. General Appearance: cooperative and comfortable HEENT normocephalic, head/scalp atraumatic, hearing grossly normal bilaterally, nasal mucous membranes and turbinates normal and moist oral mucous membranes Eyes PERRL, EOMs intact bilaterally and conjunctivae normal Neck full ROM, no lymphadenopathy and supple Lymph Lymphatic: no lymphadenopathy noted Chest inspection of chest normal Chest Narrative: Mild tenderness to palpation in left lateral rib area. Resp normal respiratory effort, normal air movement and no use of accessory muscles Resp Narrative: Mild decreased breath sounds at left lung base, no wheezes or crackles noted. Satting in low 90s on 2 L nasal cannula, no increased work of breathing noted. Cardio regular rate, regular rhythm, no murmurs and peripheral pulses 2+ throughout GI normal to inspection, nondistended, normoactive bowel sounds, soft to palpation, non-tender and non-distended Back/Spine normal ROM Extremity normal to inspection, full ROM and no pedal edema Skin no rashes or lesions noted Psych mental status grossly normal Weight / BMI Weight Weight: 93.7 kg Body Mass Index (BMI) 32.3 ABG / Lab / Microbiology Data 06/13/23 02:27 06/13/23 02:27 Laboratory: Laboratory Results - last 24 hr 06/12/23 14:40: Sodium 137, Potassium 4.0, Chloride 105, Carbon Dioxide 27.0, Anion Gap 5, BUN 9, Creatinine 1.70 H, Estim Creat Clear Calc 36.36, Est GFR (MDRD) Af Amer 40 L, Est GFR (MDRD) Non-Af 33 L, BUN/Creatinine Ratio 5.3 L, Glucose 127 H, Calcium 8.9 06/13/23 02:27: WBC 10.0, RBC 3.26 L, Hgb 9.9 L, Hct 30.8 L, MCV 94.5, MCH 30.4, MCHC 32.1, RDW Std Deviation 47.3 H, RDW Coeff of Sandip 13.6, Plt Count 395, MPV 8.9, Sodium 138, Potassium 3.7, Chloride 106, Carbon Dioxide 28.0, Anion Gap 4 L, BUN 9, Creatinine 1.53 H, Estim Creat Clear Calc 40.40, Est GFR (MDRD) Af Amer 45 L, Est GFR (MDRD) Non-Af 37 L, BUN/Creatinine Ratio 5.9 L, Glucose 122 H, Calcium 8.5, Vancomycin Trough 17.3 H Microbiology: Microbiology 06/10/23 12:10 Fluid - Thoracentesis Fluid Gram Stain - Final 06/10/23 12:10 Fluid - Thoracentesis Fluid Body Fluid Culture - Final No growth aerobically. 06/10/23 12:10 Fluid - Thoracentesis Fluid Anaerobic Culture - Preliminary No growth in 48 hours. 06/09/23 16:50 Blood Culture (Wb) - Right Hand Blood Culture - Preliminary No growth in 48 hours. 06/09/23 16:34 Urine, Clean Catch Urine Culture - Final Culture exhibits no growth. 06/09/23 16:34 Urine, Random Legionella Antigen - Final 06/09/23 16:34 Urine, Random Streptococcus pneumoniae Antigen (M - Final Radiography Diagnostic Testing: Radiology Impression Chest X-Ray 06/12/23 14:38 IMPRESSION: Stable chest except for increased left effusion. No acute or emergent finding. Electronically Signed: Arik Hampton MD at 14:53 EDT , D/C Instructions Discharge Diet: No restrictions Weight Bearing Status: Full weight bearing Pending Tests Upon Discharge: None Please Follow Up With: Magan Wells DO When: Around 2 weeks Meaningful Use Info Meaningful Use Diagnoses (Choose all that apply): None applicable Discharge Plan Admission Admit Date/Time: 06/09/23 19:13 Primary Reason for Your Visit: Pneumonia Attending Provider: Rayray Ivory Primary Care Provider: Care Physician,No Primary Consulting Providers: Jonh Resendiz; Magan Wells Instructions Additional Instructions / Restrictions: Please take 3 more days of Levaquin to complete a 7-day antibiotic course for your pneumonia. Follow-up with Dr. Wells in the office in about 2 weeks; his office will call to schedule an appointment for you. Discharge Orders/Prescriptions Prescriptions: New levofloxacin 750 mg tablet 750 mg PO DAILY 3 Days Qty: 3 0RF Continued estradiol [Estrace] 1 mg tablet 1 mg PO DAILY Referrals / Follow Up: Care Physician,No Primary [Primary Care Provider] - Disposition Disposition (needs filled in before D/C Order can be placed): Home, Self Care Charges/Coding Visit Charges Inpatient E&M: 98463 Disch Hosp >30min
[2023-06-13 13:02] VITALS: BP 141/79; PULSE 74; RESP 16; TEMP 36.9; O2SAT 94
== END 2023-06-13 14:02 | disposition home or self-care (01) | DRG 186 ==
LOC: ED 15:49 → PCU 19:50
PROVIDERS: Admitting Provider Hospitalist; Emergency Provider Student in an Organized Health Care Education/Training Program; Visit Provider Hospitalist
DX: J90 Pleural effusion, not elsewhere classified (principal); J18.9 Pneumonia, unspecified organism; N17.9 Acute kidney failure, unspecified; Z80.1 Family history of malignant neoplasm of trachea, bronchus and lung; R74.8 Abnormal levels of other serum enzymes; N95.1 Menopausal and female climacteric states; Z79.2 Long term (current) use of antibiotics; Z79.891 Long term (current) use of opiate analgesic; R09.02 Hypoxemia
CPT/HCPCS: 32555; 36415; 71045; 71046; 71275; 74177; 80048; 80053; 80074; 80202; 81001; 82570; 82945; 83605; 83615; 83690; 84157; 84300; 84484; 85025; 85027; 86645; 86665; 87040; 87070; 87075; 87086; 87205; 87449; 87641; 88108; 88305; 88313; 89050; 93005; 94668; 99252; 99284; J7030; J7040; J7050; Q9967; A4216; G0463; J2405

== ENCOUNTER → 2023-08-05 | Outpatient (CLI) | payer OTHER, SELFPAY ==
--- NOTE | 2023-08-05 06:38 | CT_ITS ---
INDICATION: pleural effusion EXAMINATION: CT CHEST WITHOUT CONTRAST - CT Chest W/O Contrast Injection TECHNIQUE: Helically acquired images were obtained of the chest. A radiation dose optimization technique was used for this scan. IV Contrast dosage and agent: None. RADIATION DOSAGE (If Supplied By Facility): CTDIvol = ( 11.66 ) mGy, DLP = ( 390.48 ) mGycm COMPARISON: Prior study dated: CTA of the chest of 06/09/2023. FINDINGS: LUNGS, PLEURA AND LARGE AIRWAYS: Mild scarring in the left lower lobe. No focal consolidation is seen. No evidence of pulmonary nodules. No pleural effusion or thickening. No pneumothorax. THYROID: No thyroid lesions. HEART AND PERICARDIUM: Heart size is normal. No pericardial effusion. CORONARY ARTERIES: Mild coronary calcifications. VESSELS: Borderline to mild ascending thoracic aortic aneurysm measuring up to 4 cm in AP diameter. MEDIASTINUM AND JENELLE: No mediastinal or hilar adenopathy. Esophagus is unremarkable. No hiatal hernia. UPPER ABDOMEN: No acute pathology. BONES: No suspicious lytic or blastic abnormality. Increased kyphosis and mild degenerative changes. CT/Chest without Contrast IMPRESSION: 1. No acute pulmonary infiltrate or pleural effusions. 2. Borderline to mild ascending thoracic aortic aneurysm measuring 4 cm in AP diameter. Electronically Signed: Jose Manuel Whitt MD at 12:21 EST ,
== END | disposition home or self-care (01) ==
LOC: CT 06:38
PROVIDERS: PCP Nurse Practitioner Family; Referring Provider Nurse Practitioner Acute Care; Visit Provider Nurse Practitioner Acute Care
DX: J90 Pleural effusion, not elsewhere classified (principal)
CPT/HCPCS: 71250

== ENCOUNTER → 2023-12-08 | Outpatient (CLI) | payer OTHER, SELFPAY ==
[2023-12-11 16:11] LABS: HPV APTIMA, High Risk Negative (Negative)
== END | disposition home or self-care (01) ==
PROVIDERS: PCP Nurse Practitioner Family; Referring Provider Obstetrics & Gynecology; Visit Provider Obstetrics & Gynecology
DX: Z12.4 Encounter for screening for malignant neoplasm of cervix (principal)
CPT/HCPCS: 87624; 88175; G0145

== ENCOUNTER → 2024-05-18 | Outpatient (CLI) | payer OTHER, SELFPAY ==
--- NOTE | 2024-05-18 06:50 | CT_ITS ---
STUDY: CTA CHEST REASON FOR EXAM: Female, 58 years old. REASSESS THORACIC AORTIC ANEURYSM RADIATION DOSAGE (If Supplied By Facility): CTDIvol = ( 11.33 ) mGy, DLP = ( 290.86 ) mGycm TECHNIQUE: The examination was performed with the intravenous administration of IV 100mL [id number]. Post-processing of the angiographic images was performed, with multiplanar reformation and 3D reconstruction. Individualized dose optimization techniques were used for this CT. COMPARISON: Comparison is made with prior study dated June 09, 2023. FINDINGS: Normal enhancement of the main pulmonary artery and right and left pulmonary arteries. Normal enhancement of the bilateral peripheral pulmonary arteries. There is no demonstrated pulmonary embolism. There is aneurysmal dilatation of the ascending aorta. The transverse diameter of the ascending aorta measures 40 mm. This has increased slightly in size. There is no demonstrated aortic dissection. Normal heart and pericardium. Normal mediastinum. Normal hilar regions. Normal visualized trachea and bronchi. The lungs are well expanded. Normal pulmonary parenchyma. Normal pleura. Normal chest wall structures. Normal osseous structures. Normal visualized upper abdomen. CT/CTA Chest W/WO Contrast IMPRESSION: Mild ectasia of the ascending thoracic aorta. Electronically Signed: Juventino Leyva MD at 15:14 EDT ,
[2024-05-18 07:14] LABS: CREATININE FINGERSTICK < 1.0 mg/dL (0.55-1.02); EGFR FINGERSTICK > 60.0000 mL/min (>60)
== END | disposition home or self-care (01) ==
PROVIDERS: PCP Nurse Practitioner Family; Referring Provider Nurse Practitioner Family; Visit Provider Nurse Practitioner Family
DX: I71.21 Aneurysm of the ascending aorta, without rupture (principal)
CPT/HCPCS: 71275; Q9967

== ENCOUNTER → 2024-12-22 | Outpatient (CLI) | payer OTHER, SELFPAY ==
--- NOTE | 2024-12-22 07:15 | BI_ITS ---
EXAM: SCRN MAMM (CAD)W/MICHELLE BILAT 12/22/2024 CLINICAL HISTORY: F, Age 58 y/o , SCRN MAMM (CAD)W/MICHELLE BILAT TECHNIQUE: Bilateral screening digital breast tomosynthesis with 2D and 3D images. Computer aided detection. COMPARISON: Prior exam(s) dated 12/04/2023. FINDINGS: TISSUE DENSITY: The breast tissue is composed of scattered area of fibroglandular density. Bilateral Breast Mammographic Findings: No significant masses, calcifications or other abnormalities are identified. BI/SCRN MAMM (CAD)W/MICHELLE BILAT IMPRESSION: Right Breast: BIRADS 1 NEGATIVE. Left Breast: BIRADS 1 NEGATIVE. OVERALL FINAL ASSESSMENT: BIRADS 1 NEGATIVE. RECOMMENDATION: Routine annual follow-up in 1 Year A letter with findings and recommendations will be mailed to the patient. Reading Location: [id number]
== END | disposition home or self-care (01) ==
LOC: OPBI 07:06
PROVIDERS: PCP Nurse Practitioner Family; Referring Provider Nurse Practitioner Family; Visit Provider Nurse Practitioner Family
DX: Z12.31 Encounter for screening mammogram for malignant neoplasm of breast (principal)
CPT/HCPCS: 77063; 77067